=== PATIENT | female | born 1955 | race Caucasian/White ===

== ENCOUNTER 2016-09-26 09:09 | Inpatient (IN) | payer SELFPAY ==
[~2016-09-26] VITALS: Ht 157.5 cm; Wt 60.9 kg
--- NOTE | 2016-09-26 10:36 | DIAGNOSTIC IMAGING REPORT ---
PROCEDURE: XR CHEST 2 VIEW INDICATION: FEVER TECHNIQUE: Two views. COMPARISON: None. FINDINGS: The heart size is at the upper limits of normal. Normal aortic caliber. No central venous congestion. Mild soft tissue prominence in the right infrahilar region. Coarse interstitial markings and thickening of the fissures. Mild hyperinflation of the lungs. Hyperlucent apices. Patchy strandy parenchymal changes in the lower lobes bilaterally. No focal consolidation. Blunting of the costophrenic angles posteriorly. No pneumothorax. Left shoulder arthroplasty with elevation of the prosthetic humeral head and remodelling of the glenoid fossa. No acute fractures visible. IMPRESSION: 1. Coarse interstitial markings and slight hyperinflation suggesting underlying component of COPD/emphysema. 2. Heart size at the upper limits of normal and slight accentuation of the interstitium in the lower lungs could indicate chronic edema or fibrosis. Correlate with BNP. 3. Patchy strandy parenchymal changes of uncertain acuity, atelectasis versus early interstitial edema. 4. A left shoulder arthroplasty.
--- NOTE | 2016-09-26 12:37 | ED NURSING NOTES ---
Clinical Report - Nurses [facility] [address] [place] [address] 09/26/2016 9:09 Patient: IVY ARIAS TRIAGE Triage time 09:10. Acuity: LEVEL 3. Chief Complaint: CHEST PAIN and DISCOMFORT. SEPSIS SCREEN: Sepsis Screen. Negative (no infection suspected/documented). --09:19 Maribell Carlos R.N. 09:10 09/26/16. BP: 150/106. HR: 112. RR: 18. O2 saturation: 99%. Temp: 97.5 F. Pain level now: 12/27. --09:19 Maribell Carlos R.N. Weight: 49.8 kg. Height/Length: 62 inches. BMI: 20.1. --09:11 Maribell Carlos R.N. Medications None. --09:30 Maribell Carlos R.N. Allergies Morphine and Related. --09:30 Maribell Carlos R.N. History Arrived by EMS. Historian: patient. Primary physician (none). This started yesterday. ( Pt c/o CP and point to her midline area when asked where it hurts). The patient has had difficulty breathing. Treatment [employer]SM[employer] APPRENTICE: None. See EMS report. SOCIAL HX: Light tobacco smoker (cigarette)- less than 1/2 a pack per day. Occasional alcohol use. No drug use. No infectious disease exposure. SELF HARM ASSESSMENT: A self harm assessment was performed. The patient answered "no" to the question "Do you have thoughts of harming or killing yourself?". ABUSE ASSESSMENT: Abuse assessment: (pt is homeless). --09:19 Maribell Carlos R.N. PROBLEMS: Upper Extremity Pain. COPD - Chronic Obstructive Pulmonary Disease. Arthritis. --09:31 Maribell Carlos R.N. ADDITIONAL SURGERIES: . Left wrist. Shoulder Surgery. --09:31 Maribell Carlos R.N. Interventions To room. --09:19 Maribell Carlos R.N. PHYSICAL ASSESSMENT To room via stretcher. Patient gowned. GENERAL / NEURO / PSYCH: Alert. Oriented X 4. Appears in pain, anxious and in distress. RESPIRATORY: Moderate respiratory distress. SKIN: Skin is warm and dry. --09:19 Maribell Carlos R.N. NURSING PROGRESS NOTES Patient gowned. Patient identifiers checked. Call light placed in reach. Side rails up. Bed placed in lowest position. Brakes of bed on. Patient ready for evaluation- ED physician notified. --09:20 Maribell Carlos R.N. EKG time: (916). EKG was ordered, performed by a tech and shown to the ED physician. --09:32 Didi Uribe, ER Tech1 09:35 09/26/2016 Site #1 started via IV in the left forearm with an 20g angiocath, with aseptic technique and good blood return; one attempt. Blood drawn: rainbow set. Labeled in the presence of the patient and sent to the lab. Saline lock flushed with 10 mL saline (Beronica GRESHAM). --09:45 Maribell Carlos R.N. 09:45 09/26/2016 Started bag #1 1000 mL IV Fluids IV NS (Saline); bolus of 500 mL over 30 minute(s) then at 100 mL/hr over 5 hour(s) via site #1 via IV pump. Allergies verified and confirmed 5 rights. IV patency established. IV site checked: no pain, redness, or swelling. IV flushed thoroughly pre- and post-medication administration. --09:45 Maribell Carlos R.N. 09:45 09/26/2016 Toradol IVP 30 mg given over 1 minute(s) via site #1. Allergies verified and confirmed 5 rights. IV patency established. IV site checked: no pain, redness, or swelling. IV flushed thoroughly pre- and post-medication administration. IVP given by RN. --09:45 Maribell Carlos R.N. 09:46 09/26/2016 Ativan (LORazepam) IVP 1 mg given over 1 minute(s) via site #1. Allergies verified, confirmed 5 rights and sedative warning given to the patient. IV patency established. IV site checked: no pain, redness, or swelling. IV flushed thoroughly pre- and post-medication administration. IVP given by RN. --09:46 Maribell Carlos R.N. Reassessment after medication administered. She reports no complaints, she is calm and sleeping and she has had no adverse reaction. Overall patient status is improved- she states feels better. RESPIRATORY: No respiratory distress. SKIN: Skin color within normal limits. --09:49 Maribell Carlos R.N. 09:50 09/26/16. BP: 153/97. HR: 100. RR: 16. O2 saturation: 95%. --09:53 Maribell Carlos R.N. Patient transported to radiology by stretcher with tech. --09:58 Maribell Carlos R.N. 10:37 09/26/16. BP: 162/88. HR: 109. RR: 18. O2 saturation: 99%. --10:38 Maribell Carlos R.N. 10:15 late entry -. Patient returned from radiology by stretcher with tech. --10:39 Maribell Carlos R.N. ( Pt is very restless, unable to tolerate BP cuff and taking it off, O2 sat unable to read due to pt moving around constantly, several blankets given which pt gets tangled in. She is groaning and saying she is uncomfortable but is unable to express what hurts.). GENERAL / NEURO / PSYCH: The patient reports anxiety. --11:06 Maribell Carlos R.N. ( Pt in CT, received call that she won't hold still, gave Ativan as ordered.). --12:08 Maribell Carlos R.N. Patient transported to CT by stretcher with tech. ([id number]). --12:08 Maribell Carlos R.N. 13:15 US tech at bedside to attempt echocardiagram. --13:15 Chantal Lovell R.N. ( Echo done to the best of the ability of the tech due to restlessness of the patient). --13:48 Maribell Carlos R.N. 13:48 09/26/16. BP: 187/116. HR: 108. O2 saturation: 99%. Additional comments: very difficult to get vital signs due to pt removing bp cuff and o2 sat. --13:50 Maribell Carlos R.N. ( Pt won't keep product manufacturing professional, BP cuff, or Sat monitor on. She is within site of the nurses station to be visually monitored). --14:02 Maribell Carlos R.N. Reassessment after medication administered. She is calm and sleeping. --14:18 Maribell Carlos R.N. The patient is sleeping. ( Respirations 16). SKIN: Skin is warm and dry. Skin color within normal limits. --14:45 Maribell Carlos R.N. late entry -16:00. ( Patient sleeping soundly. 98 percent O2 on room air.). --12:03 Maki Decker R.N. late entry -16:45. ( Assisted patient to commode patient very sleepy and falling asleep while on the toilet. O2 sat 98 percent room air. Patient refused other monitoring.). --12:05 Maki Decker R.N. late entry -17:10. ( assisted patient to commode very sleepy and disoriented.). --12:05 Maki Decker R.N. late entry -18:10. ( here to see patient requests labs before he will accept admit.). --12:06 Maki Decker R.N. late entry -19:00. ( Report given to Aruna GRESHAM). --12:07 Maki Decker R.N. 10:45 09/26/2016 IV Fluids IV NS Discontinued: bag #1 infused. Total amount infused: 1000 mL. IV patency established. IV site checked: no pain, redness, or swelling. IV flushed thoroughly. --12:07 Maki Decker R.N. 11:31 09/26/2016 Ativan (LORazepam) IVP 1 mg given over 1 minute(s) via site #1. Allergies verified, confirmed 5 rights and sedative warning given to the patient. IV patency established. IV site checked: no pain, redness, or swelling. IV flushed thoroughly pre- and post-medication administration. IVP given by PA. --11:41 Maribell Carlos R.N. 12:07 09/26/2016 Ativan (LORazepam) IVP 2 mg given over 2 minute(s) via site #1. Allergies verified, confirmed 5 rights and sedative warning given. IV patency established. IV site checked: no pain, redness, or swelling. IV flushed thoroughly pre- and post-medication administration. IVP given by RN. --12:07 Maribell Carlos R.N. 12:58 09/26/16. Overall patient status is the same- she states feels the same (pt out to desk stating "it's time for me to go", walked her back into her room, she had pulled out her IV). --12:58 Chantal Lovell R.N. 13:01 09/26/2016 Site #1 removed (pt pulled out the IV catheter, and it was on the bed, catheter is intact). --13:01 Chantal Lovell R.N. 13:15 09/26/2016 Site #2 started via IV in the left forearm with an 20g angiocath, with aseptic technique and good blood return; one attempt. Saline lock flushed with 10 mL saline. --13:15 Chantal Lovell R.N. 13:31 09/26/2016 Lasix IVP 80 mg given over 1 minute(s) via site #2. Allergies verified and confirmed 5 rights. IV patency established. IV site checked: no pain, redness, or swelling. IV flushed thoroughly pre- and post-medication administration. IVP given by RN. --13:41 Maribell Carlos R.N. 13:42 09/26/2016 Dilaudid (HYDROmorphone HCl PF) IVP 1 mg given over 1 minute(s) via site #2. Allergies verified, confirmed 5 rights and sedative warning given to the patient. IV patency established. IV site checked: no pain, redness, or swelling. IV flushed thoroughly pre- and post-medication administration. IVP given by RN. --13:42 Maribell Carlos R.N. Intake & Output Urine: up to bedside commode, with return of 500 mL yellow-colored urine; odor is foul-smelling. --15:31 Maribell Carlos R.N. DISPOSITION / DISCHARGE 20:25 09/26/16. BP: 152/102 (regular adult cuff) taken on the left arm. HR: 102. RR: 14. O2 saturation: 98% on nasal cannula at 1 liters/minute. Temp: 98 F (oral). Pain level now: 0. --20:34 Aruna Dunaway R.N. 20:25 09/26/2016 Site #[address] upon transfer; patent, no pain and no signs of infection or infiltration. --20:34 Aruna Dunaway R.N. 20:33 09/26/16. Departure time: 20:Sep 26 2016. Admitted to the Critical Care Unit. Report was given. (By Ysabel RN to MP Colón). Patient's personal items include: shirt and purse. --20:34 Aruna Dunaway R.N. Locked/Released at 09/27/2016 12:07 by Maki Decker R.N.
--- NOTE | 2016-09-26 12:37 | ED CLINICAL REPORT ---
Clinical Report - Physicians/Mid Levels [facility] [address] [place] [address] 09/26/2016 9:09 Patient: IVY ARIAS Time Seen: 09:22. Arrived- By ambulance. Historian- patient and EMS personnel. HISTORY OF PRESENT ILLNESS Chief Complaint: CHEST PAIN. At its maximum, severity described as moderate. When seen in the E.D., severity described as moderate. Modifying factors- worsened by cough and deep breaths. Not relieved by anything. This started about 3 days ago and is still present. The patient cannot recall the circumstances at the onset. It is described as tightness, sharp and "pain" and it is described as located in the central chest area and radiating to the upper back. The patient has had nausea. She has had vomiting (today). She has had difficulty breathing (hurts to take a deep breath). No diaphoresis. (patient states she has had a cough and a fever for about the last 3 days. She has not measured the fever, but states she has felt warm. Patient states that she has been told that she has early COPD, but otherwise has no heart or lung problems. Patient denies having had chest pain ever before.). Similar symptoms previously: None. Recent medical care: Not recently seen/assessed. REVIEW OF SYSTEMS The patient has had a subjective fever, a cough and abdominal pain. The pain is described as located in the lower abdomen. No chills, calf pain, fainting episodes, headache or sore throat. No blurred vision, black stools, difficulty with urination, skin rash or enlarged lymph nodes. No bloody stools. The patient has had pedal edema (- gone). All systems otherwise negative, except as recorded above. PAST HISTORY Problems: LNMP - Last Normal Menstrual Period. COPD - Chronic Obstructive Pulmonary Disease. Arthritis. Additional Surgeries: . Left wrist. Shoulder Surgery. Medications: None. Allergies: Morphine and Related. SOCIAL HISTORY Smoker- current status unknown. Alcohol use. No drug use. ADDITIONAL NOTES The nursing notes have been reviewed. PHYSICAL EXAM Vital Signs: 09/26/2016 09:10 BP: 150/106. HR: 112. RR: 18. O2 saturation: 99%. Temp: 97.5 F. Pain level now: 12/27. Have been reviewed. Appearance: Alert. Patient in mild distress. Distress appears due to pain and anxiety. (Patient is grossly oriented, and answers questions appropriately.). Eyes: Pupils equal, round and reactive to light. Eyes normal inspection. ENT: Nose normal. Neck: Normal inspection. CVS: Tachycardia. Heart sounds normal. Pulses normal. Respiratory: No respiratory distress. Breath sounds normal. (Chest is tender, but it is difficult to ascertain whether this is the same pain, patient states.). Abdomen: Soft and nontender. Back: Normal external inspection. Skin: Skin warm and dry. Normal skin color. No rash. Normal skin turgor. Extremities: Extremities exhibit normal ROM. No lower extremity edema. Neuro: Oriented X 3. No motor deficit. No sensory deficit. LABS, X-RAYS, AND EKG EKG: EKG time: (916). No acute ischemia. Rate: 109. Regular narrow-complex tachycardia. Sinus tachycardia. Occasional ectopic beats. Premature ventricular contractions. Normal P waves. Normal JORGE. Decreased QRS voltage. Normal axis. Normal ST and T waves, QT and QTc. Prior EKG unavailable. The study has been interpreted contemporaneously by me. The study has been independently viewed by me. The EKG appears to be a good tracing. I agree with and confirm the computer reading of the EKG. Rhythm Strip #1: Time: (927). Rate= 107. Sinus tachycardia. Regular rhythm. Narrow QRS complexes. No ectopy. Conduction normal. Normal ST segments and T waves. The study was interpreted by me. Chest X-ray: Vascular congestion present. Cardiomegaly. Mediastinum normal. Great vessels normal. Soft tissues normal. No infiltrate. No fracture. No bony lesion present. (Findings also consistent with COPD.). Views: PA and lateral. Technique: good. The X-rays were independently viewed by me, interpreted by the radiologist and contemporaneously by me and discussed with the radiologist. Prior films were not available for comparison. Chest CT: Great vessels normal. Mediastinum normal. No fractures noted. No pulmonary embolism. (Cardiomegaly more pronounced than on the chest x-ray. Patient's also found to have findings consistent with CHF. She is noted to have anasarca and thickening of the gallbladder wall without pericholecystic fluid, and no visible gallstones.). Chest CT performed with contrast and without contrast. The study was independently viewed by me, interpreted by the radiologist and contemporaneously by me and discussed with the radiologist. Prior studies were not available for comparison. Abdominal Sonogram: Gallbladder wall thickening is present. Normal liver. Pancreas normal. No free fluid. No gallstones, dilated common duct or common duct stones. Study included the gallbladder and upper abdomen. Prior studies were not available for comparison. The study was interpreted by the radiologist and discussed with the radiologist. Laboratory Tests: UA-Culture if indicated: (DOMINGO: 09/26/2016 10:30) ( MsgRcvd 09/26/2016 18:53) Final results Test Result Flag Units (Reference) URINE COLOR YELLOW URINE APPEARANCE CLOUDY URINE GLUCOSE NEGATIVE (NEGATIVE) URINE BILIRUBIN NEGATIVE (NEGATIVE) URINE KETONE NEGATIVE (NEGATIVE) URINE SPECIFIC GRAVITY >= 1.030 (1.010-1.030) URINE PH 6.0 (5.0-8.0) URINE PROTEIN 2+ (NEGATIVE) URINE UROBILINOGEN 0.2 EU/dL (0.2-1.0) URINE NITRITE NEGATIVE (NEGATIVE) URINE BLOOD NEGATIVE (NEGATIVE) URINE LEUK ESTERASE NEGATIVE (NEGATIVE) URINE RBC NONE SEEN rbc/hpf (0-1) URINE WBC 0-1 wbc/hpf (0-1) URINE EPITHELIAL CELLS 0-1 EPI/hpf (0-5) URINE BACTERIA MANY (4+) (NONE SEEN) URINE COMMENT CULTURE INDICATED URINE CULTURES ARE SET-UP BASED ON THE FOLLOWING CRITERIA:POSITIVE NITRITEPOSITIVE LEUKOCYTE ESTERASEGREATER THAN 10 WHITE BLOOD CELLSMODERATE (2+) OR GREATER BACTERIA CBC w Diff: (DOMINGO: 09/26/2016 09:20) ( MsgRcvd 09/26/2016 09:46) Final results Test Result Flag Units (Reference) WHITE BLOOD COUNT 13.2 H K/uL (4.5-11.5) RED BLOOD COUNT 3.83 L M/uL (4.00-5.20) HEMOGLOBIN 11.2 L gm/dL (12.0-16.0) HEMATOCRIT 33.9 L % (36.0-46.0) MEAN CELL VOLUME 89 fL (80-100) MEAN CORPUSCULAR HGB 29 pg (26-34) MEAN CORPUSCULAR HGB CONC 33 g/dL (31-37) RED CELL DISTRIBUTION WIDTH 16.0 H % (11.6-14.8) PLATELET COUNT 410 H K/uL (150-400) NEUTROPHIL % 80.5 H % (50-75) LYMPH % 11.9 L % (25-40) MONO % 6.3 % (3-14) EOSINOPHIL % 0.4 % (0-4) BASOPHIL % 0.9 % (0-2) [id number]: (DOMINGO: 09/26/2016 09:20) ( [facility] 09/26/2016 10:00) Final results Test Result Flag Units (Reference) D-DIMER QUANTITATIVE 1.85 H ug/mLFEU (0.27-0.52) The primary value of this quantitative assay relates toits negative predictive value (i.e. exclusion) of pulmonaryembolism/deep vein thrombosis/DIC.Elevated levels of d-dimer may also occur with:, age, cancer, inflammation, liver disease,post-op, infection, hematoma, coronary disease, peripheralarteriopathy, bleeding disorders and thrombolytic treatment.Results should be correlated with other clinical andradiological data.Testing Methodology: Latex Immunoassay Amylase: (DOMINGO: 09/26/2016 17:35) ( [facility] 09/26/2016 19:03) Final results Test Result Flag Units (Reference) AMYLASE 35 U/L (25-115) THYROID STIMULATING HORMONE 1.348 uIU/mL (0.30-3.74) Urine Drug Screen: (DOMINGO: 09/26/2016 10:30) ( [facility] 09/26/2016 19:03) Final results Test Result Flag Units (Reference) AMPHETAMINE/METHAMPHETAMINE POSITIVE H (NEGATIVE) BARBITURATE NEGATIVE (NEGATIVE) BENZODIAZEPINE NEGATIVE (NEGATIVE) CANNABINOID NEGATIVE (NEGATIVE) COCAINE NEGATIVE (NEGATIVE) ECSTASY NEGATIVE (NEGATIVE) METHADONE NEGATIVE (NEGATIVE) OPIATE POSITIVE H (NEGATIVE) The urine drug screen is a qualitative screening test fordrug overdose and abuse. All screen results should beconsidered as presumptive.Drugs screened for are as follows:BenzodiazepinesCocaineAmphetamines/MetamphetaminesTHC (Tetrahydrocannabinol)OpiatesBarbituratesEcstasyMethadonePositive results are unconfirmed. For confirmation, notifythe lab for the specimen to be sent to the reference lab.All confirmations must be performed by a differentmethodology.The ingestion of natural herbal and plant productscontaining Ephedra/Ephedra metabolites can produce in urineone or more substances capable of cross reacting withamphetamine/methamphetamine immunoassays. These testsprovide a preliminary result only. A more specificalternative chemical method must be used to obtain aconfirmed analytical result. Lactate, Serum: (DOMINGO: 09/26/2016 17:35) ( [facility] 09/26/2016 18:16) Final results Test Result Flag Units (Reference) LACTIC ACID 1.4 mmol/L (0.4-2.0) [id number]: (DOMINGO: 09/26/2016 09:20) ( [facility] 09/26/[place] 18:09) Final results Test Result Flag Units (Reference) PROCALCITONIN <0.5 ng/mL (0-0.5) PCT Concentration: Interpretation : Risk/option for action PCT <=0.5 ng/mL : Systemic : Low risk forinfection(sepsis): progression to severeis not likely. : systemic infection.Local bacterial : CAUTION-PCT levelsinfection is : below 0.5 ng/mL do notpossible. : exclude an infection,because localizedinfections (withoutsystemic signs) may beassociated with suchlow levels. If PCT ismeasured very earlyafter a bacterialchallenge (usually <6hours), these valuesmay still be low. Inthis case PCT shouldbe re-assessed 6-24hours later. PCT >0.5 and : Systemic infection: Moderate risk for<= 2 ng/mL : (sepsis) is : progression to severepossible, but : systemic infection.other conditions : The patient should beare known to : closely monitoredelevate PCT. : both clinically andby re-assessing PCTwithin 6-24 hours. PCT > 2 ng/mL : Systemic infection: High risk for(sepsis) is likely: progression to severeunless other : systemic infection.causes are known. : PCT >= 10 ng/mL : Important systemic: High likelihood ofinflammatory : severe sepsis orresponse, almost : septic shock.exclusively due to:severe bacterial :sepsis or septic :shock. : Liver Function Panel: (DOMINGO: 09/26/2016 09:20) ( MsgRcvd 09/26/2016 18:04) Final results Test Result Flag Units (Reference) TOTAL PROTEIN 6.5 g/dL (6.4-8.2) ALBUMIN 3.4 g/dL (3.3-5.0) BILIRUBIN, TOTAL 1.4 H mg/dL (0.0-1.0) BILIRUBIN, DIRECT 0.3 mg/dL (0-0.3) ALKALINE PHOSPHATASE 157 H U/L (46-116) AST (SGOT) 109 H U/L (15-37) ALT (SGPT) 192 H U/L (12-78) Troponin-I: (DOMINGO: 09/26/2016 09:20) ( [facility] 09/26/2016 13:41) Final results Test Result Flag Units (Reference) TROPONIN I 0.05 ng/mL (0.00-1.5) TROPONIN REFERENCE RANGE:<0.1 NEGATIVE0.1-1.5 INDETERMINANT>1.5 POSITIVE CHEM 13 PANEL: (DOMINGO: 09/26/2016 09:20) ( [facility] 09/26/2016 10:05) Final results Test Result Flag Units (Reference) GLUCOSE 119 H mg/dL (70-110) BUN 22 H mg/dL (7-18) CREATININE 1.3 mg/dL (0.6-1.3) Estimated GFR 44.56 mL/min Estimated GFR- 54.01 mL/min Note: Persistent reduction over 3 months in eGFR<60 mL/min/1.73 m2 defines CKD. Patients with eGFR values>=60 mL/min/1.73 m2 may also have CKD if evidence ofpersistent proteinuria. Additional information may be foundat www.kidney.org. SODIUM 140 mmol/L (136-145) POTASSIUM 4.3 mmol/L (3.5-5.1) CHLORIDE 104 mmol/L (98-107) CARBON DIOXIDE 26 mmol/L (21-32) CALCIUM 8.8 mg/dL (8.5-10.1) TOTAL PROTEIN 6.4 g/dL (6.4-8.2) ALBUMIN 3.3 g/dL (3.3-5.0) BILIRUBIN, TOTAL 1.5 H mg/dL (0.0-1.0) ALKALINE PHOSPHATASE 155 H U/L (46-116) AST (SGOT) 105 H U/L (15-37) ALT (SGPT) 195 H U/L (12-78) MAGNESIUM 2.0 mg/dL (1.8-2.4) CPK 219 U/L (24-260) TROPONIN I 0.06 ng/mL (0.00-1.5) TROPONIN REFERENCE RANGE:<0.1 NEGATIVE0.1-1.5 INDETERMINANT>1.5 POSITIVE . Pulse Oximetry: 09/26/2016 09:10 O2 saturation: 99%. (FIO2 - room air). Interpretation: normal. PROGRESS AND PROCEDURES Course of Care: Patient was treated symptomatically with Toradol, Dilaudid, multiple doses of Ativan, and IV fluids. She was worked up extensively for her chest pain, cough and shortness of breath. Patient was found to have a mildly elevated white blood cell count and moderately elevated LFTs. BNP was not available secondary to malfunction of the lab machine toanalyze for BNP. Chest x-ray showed mild cardiomegaly and findings consistent with and mild CHF, as well as COPD. A CT angiogram of the chest was performed, secondary to the patient's elevated d-dimer and her presentation. This showed no pulmonary embolism but did show more pronounced findings of CHF and cardiomegaly than were visible on the chest x-ray. This showed anasarca, and radiologist did feel that the findings on the abdominal sonogram, which had been done because of the patient's elevated LFTs and chest discomfort, were not necessarily consistent with actual cholecystitis, given the degree of fluid retention from the patient CHF. I did speak with Dr. Vazquez and Dr. Peguero and ultimately, it was decided that patient would be admitted to the hospitalist service, with consultation by general surgery. Plan is for a HIDA scan tomorrow to further evaluate the potential for cholecystitis. Patient did have a normal lactate and pro calcitonin levels. She was given IV Lasix for diuresis. Discussed case with hospitalist, (Marielena). Reviewed test results and need for additional work-up. Agreed upon treatment plan and decision to admit. Health care provider will see patient in ED. Discussed case with health care provider (Taylor, surgery). Reviewed test results and need for additional work-up. Agreed upon treatment plan. Health care provider will see patient in hospital. Patient counseled in person regarding the patient's serious condition, test results, diagnosis and need for additional testing and admission. Concerns were addressed. Old medical records reviewed. Disposition: Admitted to the Critical Care Unit. Condition: serious. CLINICAL IMPRESSION Acute moderate congestive heart failure. Possible acute cholecystitis. No cholelithiasis. (Electronically signed by Jenifer Ashley MD 09/26/2016 22:34)
--- NOTE | 2016-09-26 12:38 | ED ORDER SUMMARY ---
..... Patient: IVY ARIAS OrderSheet [facility] VisitID: [id number] [address] [place] [address] 61y, F Registration Date/Time: 09/26/2016 ORDER SHEET Weight: 49.8 kg Allergies: Morphine and Related GENERAL ORDERS: EKG - ER Stat (09:18 09/26/2016 PWeiler ER Tech1 per protocol) (9:18 PWeiler ER Tech1) Chest 2V Urgent (09:32 09/26/2016 Rodrigo SEPULVEDA) (Ack 9:42 PWeiler ER Tech1) (10:08 PWeiler ER Tech1) Otolaryngology Teacher (Continuous) (:09/26/2016 Rodrigo SEPULVEDA) (9:46 JBest R.N.) Cardiac Panel Stat (:09/26/2016 Rodrigo SEPULVEDA) (Ack 9:42 PWeiler ER Tech1) (11:11 PWeiler ER Tech1) BNP Urgent (:09/26/2016 Rodrigo SEPULEVDA) (Ack 9:42 PWeiler ER Tech1) (11:11 PWeiler ER Tech1) D-Dimer Urgent (09:09/26/2016 Rodrigo SEPULVEDA) (Ack 9:42 PWeiler ER Tech1) (11:11 PWeiler ER Tech1) Pulse oximeter (:09/26/2016 Rodrigo SEPULVEDA) (9:46 JBest R.N.) CTA Thorax w Cont (No) (N/A) Urgent (11:25 09/26/2016 Rodrigo SEPULVEDA) (Ack 11:29 PWeiler ER Tech1) (12:17 PWeiler ER Tech1) US Abdomen Limited (Yes) Urgent (11:25 09/26/2016 Rodrigo SEPULVEDA) (Ack 11:29 PWeiler ER Tech1) (12:30 PWeiler ER Tech1) Troponin-I Urgent (12:53 09/26/2016 Rodrigo SEPULVEDA) (Ack 12:57 PWeiler ER Tech1) (12:58 PWeiler ER Tech1) Echocardiogram Urgent (12:53 09/26/2016 Rodrigo SEPULVEDA) (Ack 12:59 PWeiler ER Tech1) (Cancelled: Wrong Order14:08 PWeiler ER Tech1) Echocardiogram (Limited) Urgent (14:08 09/26/2016 PWeiler ER Tech1 verbal order read back to Rodrigo SEPULVEDA) (14:24 PWeiler ER Tech1) Lactate, Serum Urgent (16:33 09/26/2016 Rodrigo SEPULVEDA) (Ack 16:37 PWeiler ER Tech1) (17:43 PWeiler ER Tech1) PCT (Procalcitonin) Urgent (16:33 09/26/2016 Rodrigo SEPULVEDA) (Ack 16:37 PWeiler ER Tech1) (17:43 PWeiler ER Tech1) Liver Function Panel Urgent (16:33 09/26/2016 Rodrigo SEPULVEDA) (Ack 16:37 PWeiler ER Tech1) (17:43 PWeiler ER Tech1) MEDICATION ORDERS: IV FLUIDS: IV NS : initial bolus 500 mL (1000 mL/hr), then 100 mL/hr (NOW) (09:33 09/26/2016 Rodrigo SEPULVEDA) (9:45 JBest R.N.) Toradol IV 30 mg (NOW) (09:33 09/26/2016 Rodrigo SEPULVEDA) (9:45 JBest R.N.) Ativan IV 1 mg (HIGH ALERT MEDICATION, NOW) (09:33 09/26/2016 Rodrigo SEPULVEDA) (9:46 JBest R.N.) Ativan IV 1 mg (HIGH ALERT MEDICATION, NOW) (11:23 09/26/2016 Rodrigo SEPULVEDA) (11:41 JBest R.N.) Ativan IV 2 mg (HIGH ALERT MEDICATION, NOW) (11:52 09/26/2016 Rodrigo SEPULVEDA) (12:07 JBest R.N.) Dilaudid IV 1 mg (HIGH ALERT MEDICATION, NOW) (12:52 09/26/2016 Rodrigo SEPULVEDA) (13:42 JBest R.N.) Lasix IV 80 mg (NOW) (12:57 09/26/2016 Rodrigo SEPULVEDA) (13:41 JBest R.N.) ORDER SHEET NOTES: [Electronically signed by Jenifer Ashley MD (22:34 09/26/2016)] [Electronically signed by Maki DeckerNDarin (12:07 09/27/2016)] [Electronically locked/signed by Maki Decker R.N. (12:07 09/27/2016)]
--- NOTE | 2016-09-26 12:38 | ED ORDER SUMMARY ---
..... Patient: IVY ARIAS OrderSheet [facility] VisitID: [id number] [address] [place] [address] 61y, F Registration Date/Time: 09/26/2016 ORDER SHEET Weight: 49.8 kg Allergies: Morphine and Related GENERAL ORDERS: EKG - ER Stat (09:18 09/26/2016 PWeiler ER Tech1 per protocol) (9:18 PWeiler ER Tech1) Chest 2V Urgent (09:32 09/26/2016 Rodrigo SEPULVEDA) (Ack 9:42 PWeiler ER Tech1) (10:08 PWeiler ER Tech1) Wire Winding Machine Tender (Continuous) (:09/26/2016 Rodrigo SEPULVEDA) (9:46 JBest R.N.) Cardiac Panel Stat (:09/26/2016 Rodrigo SEPULVEDA) (Ack 9:42 PWeiler ER Tech1) (11:11 PWeiler ER Tech1) BNP Urgent (:09/26/2016 Rodrigo SEPULVEDA) (Ack 9:42 PWeiler ER Tech1) (11:11 PWeiler ER Tech1) D-Dimer Urgent (09:09/26/2016 Rodrigo SEPULVEDA) (Ack 9:42 PWeiler ER Tech1) (11:11 PWeiler ER Tech1) Pulse oximeter (:09/26/2016 Rodrigo SEPULVEDA) (9:46 JBest R.N.) CTA Thorax w Cont (No) (N/A) Urgent (11:25 09/26/2016 Rodrigo SEPULVEDA) (Ack 11:29 PWeiler ER Tech1) (12:17 PWeiler ER Tech1) US Abdomen Limited (Yes) Urgent (11:25 09/26/2016 Rodrigo SEPULVEDA) (Ack 11:29 PWeiler ER Tech1) (12:30 PWeiler ER Tech1) Troponin-I Urgent (12:53 09/26/2016 Rodrigo SEPULVEDA) (Ack 12:57 PWeiler ER Tech1) (12:58 PWeiler ER Tech1) Echocardiogram Urgent (12:53 09/26/2016 Rodrigo SEPULVEDA) (Ack 12:59 PWeiler ER Tech1) (Cancelled: Wrong Order14:08 PWeiler ER Tech1) Echocardiogram (Limited) Urgent (14:08 09/26/2016 PWeiler ER Tech1 verbal order read back to Rodrigo SEPULVEDA) (14:24 PWeiler ER Tech1) Lactate, Serum Urgent (16:33 09/26/2016 Rodrigo SEPULVEDA) (Ack 16:37 PWeiler ER Tech1) (17:43 PWeiler ER Tech1) PCT (Procalcitonin) Urgent (16:33 09/26/2016 Rodrigo SEPULVEDA) (Ack 16:37 PWeiler ER Tech1) (17:43 PWeiler ER Tech1) Liver Function Panel Urgent (16:33 09/26/2016 Rodrigo SEPULVEDA) (Ack 16:37 PWeiler ER Tech1) (17:43 PWeiler ER Tech1) MEDICATION ORDERS: IV FLUIDS: IV NS : initial bolus 500 mL (1000 mL/hr), then 100 mL/hr (NOW) (09:33 09/26/2016 Rodrigo SEPULVEDA) (9:45 JBest R.N.) Toradol IV 30 mg (NOW) (09:33 09/26/2016 Rodrigo SEPULVEDA) (9:45 JBest R.N.) Ativan IV 1 mg (HIGH ALERT MEDICATION, NOW) (09:33 09/26/2016 Rodrigo SEPULVEDA) (9:46 JBest R.N.) Ativan IV 1 mg (HIGH ALERT MEDICATION, NOW) (11:23 09/26/2016 Rodrigo SEPULVEDA) (11:41 JBest R.N.) Ativan IV 2 mg (HIGH ALERT MEDICATION, NOW) (11:52 09/26/2016 Rodrigo SEPULVEDA) (12:07 JBest R.N.) Dilaudid IV 1 mg (HIGH ALERT MEDICATION, NOW) (12:52 09/26/2016 Rodrigo SEPULVEDA) (13:42 JBest R.N.) Lasix IV 80 mg (NOW) (12:57 09/26/2016 Rodrigo SEPULVEDA) (13:41 JBest R.N.) ORDER SHEET NOTES: [Electronically signed by Jenifer Ashley MD (22:34 09/26/2016)] [Electronically signed by Maki DeckerNDarin (12:07 09/27/2016)] [Electronically locked/signed by Maki Decker R.N. (12:07 09/27/2016)]
--- NOTE | 2016-09-26 12:54 | DIAGNOSTIC IMAGING REPORT ---
PROCEDURE: CTA THORAX WITH CONTRAST INDICATION: SHORTNESS OF BREATH TECHNIQUE: 104 ml of Isovue 370 was injected intravenously and axial images were obtained of the chest with 3D sagittal and coronal MIP reconstructions. COMPARISON: None. FINDINGS: Suboptimal exam secondary to excessive patient motion. No central or lobe are pulmonary embolus. Subsegmental emboli cannot be entirely excluded but not convincingly visualized. Main pulmonary outflow tract is minimally enlarged and 3.3 cm. The heart is diffusely enlarged. No intraventricular septal bowing. Mild coronary calcification. No pericardial effusion. There is hepatic reflux of contrast. Mild adenopathy in the paratracheal, pericarinal, AP window, and right infrahilar areas. Small right, and trace left pleural effusions. Mild ground-glass opacity anterior right middle lobe and lingula. Thickening of the interstitium diffusely at the lung bases. Osseous structures suboptimally evaluated secondary to motion. There is subcutaneous edema throughout the body wall circumferentially. Trace amount of perihepatic ascites seen in the upper abdomen. IMPRESSION: 1. Suboptimal exam secondary to patient motion. 2. Cardiomegaly with findings suggestive of heart failure and interstitial edema. 3. Third spacing of fluid indicated by pleural effusions, subcutaneous edema/anasarca and trace upper abdominal ascites. 4. Mediastinal and right infrahilar adenopathy. An underlying right middle lobe infection is not excluded but felt less likely. 5. Discussed with Dr. Ashley in the emergency room.
--- NOTE | 2016-09-26 13:00 | DIAGNOSTIC IMAGING REPORT ---
PROCEDURE: US ABDOMEN ULTRASOUND-LIMITED INDICATION: ABNORMAL LFT TECHNIQUE: Prado scale and color Doppler sonographic images were obtained of the right upper quadrant. COMPARISON: None. FINDINGS: Suboptimal exam. The patient is uncooperative. The gallbladder wall is diffusely thickened measuring up to 11 mm of the gallbladder is nondilated. No stones or sludge were visible. No pericholecystic fluid or definite Butler's sign. The common duct is normal caliber 4 mm. The liver is normal in size. Portal triads are mildly hyperechoic. No liver mass or biliary dilatation. The pancreas was not visible. The right kidney measures 10.4 cm in length and has a normal echotexture. No free fluid in Morison's pouch. IMPRESSION: 1. Thickened gallbladder wall, however this is nonspecific and more likely related to heart failure, third spacing of fluid, hypoproteinemia, anasarca etc. Acalculus cholecystitis is felt less likely but not entirely excluded. 2. Echogenic portal triads possibly secondary to periportal edema. 3. Findings called to the emergency room.
--- NOTE | 2016-09-26 17:08 | DIAGNOSTIC IMAGING REPORT ---
PROCEDURE: US ECHOCARDIOGRAM LIMITED INDICATION: CHF TECHNIQUE: Limited study since the patient was not made to lie in supine position. COMPARISON: No prior study. Rhythm: Sinus tachycardia FINDINGS: The left ventricular ejection fraction is severely reduced with an estimated ejection fraction around 20%. There is severe global with the lateral wall and apical wall most preserved. The LV chamber size is grossly normal in size. The left ventricular posterior wall and interventricular septum are both measured at 1.2 cm consistent with mild concentric left ventricular hypertrophy. There is evidence for is severe tricuspid regurgitation. There is mild to moderate mitral regurgitation. The aortic valve is trileaflet and opens well. The interventricular septum is intact. The IVC is enlarged and does not collapse more than 50% during respiration consistent with a high right atrial pressure of 15 mmHg. The right ventricular systolic pressure is estimated at 76 mmHg. The right ventricular systolic function is lower limits of normal. The right ventricular chamber size is borderline enlarged. IMPRESSION: 1. Severely reduced LV systolic function with preserved apical wall motion abnormality with mild to moderately hypokinesis of the lateral wall and more severe hypokinesis along the rest of the LV segments. LV ejection fraction is estimated around 20%. 2. Preserved RV systolic function with borderline large RV chamber size. Severely increased right ventricular systolic pressure estimated at 76 mmHg. 3. Mild to moderate mitral regurgitation and severe tricuspid regurgitation. 4. Mild concentric left ventricular hypertrophy.
--- NOTE | 2016-09-26 18:51 | Progress Note ---
Subjective General Admission History and Physical Examination Patient Name: Maximiliano Elena Admission Date: September 26, 2016 Primary Care Provider: None Attending Physician: Jonathan Perez M.D. Admitting Physician: Miquel Peguero M.D. Code Status: FULL CODE Room: 302 Admission Status: Inpatient, CCU SUBJECTIVE Historian: Previous records, patient Reliability: Poor Chief Complaint: Chest pain History of Present Illness: The patient is a 61-year-old white female with unknown past medical history who presented to [facility] emergency department on the day of admission secondary to complaints of pleuritic chest pain. The history of present was began 3 days prior to admission when the patient developed intermittent chest pain. This was stated to be exacerbated by coughing, chest wall movement. It was associated with nausea and vomiting. Secondary to the above, the patient presented to [facility] emergency department for further evaluation treatment. [facility] ER evaluation was consistent with possible acute cholecystitis, CHF. Secondary to the above, general surgery (Francis Vazquez M.D.) requested the patient be admitted by the hospitalist service with surgical consultation for further evaluation and treatment. The patient is very lethargic status post administration of anti-anxiety agents. She is unable to give any history at this time. PAST MEDICAL HISTORY Illnesses: 1. COPD 2. Degenerative joint disease 3. Illicit drug use-methamphetamine Allergies: 1. Morphine Medications: 1. None Surgery: 1. 2. Left wrist surgery 3. Shoulder surgery Injuries: 1. No significant Hospitalizations: 1. For previously mentioned surgery and medical problems FAMILY HISTORY 1. Unobtainable SOCIAL HISTORY 1. Marital Status: 2. Christianity: Oriental Orthodox 3. Education: Unknown 4. Employment History: Unknown 5. Occupational health exposures: Unknown HABITS 1. Tobacco: Tobacco use, ongoing, duration and amount unknown 2. Drugs: Methamphetamine 3. Alcohol: Unknown 4. Caffeine: Unknown HEALTH SUPERVISION Item/Test 1. Unobtainable IMMUNIZATIONS: 1. Pneumococcal: Unknown 2. Influenza: Unknown 3. Tetanus: Unknown ADVANCED DIRECTIVES: 1. CODE STATUS: Full code REVIEW OF SYSTEMS Remarkable for those things stated in the history of present illness and past medical history. Seventeen point review of system completed with the following notable findings: Unobtainable Physical Exam Vital Signs / I&Os Blood pressure: 150/106 mmHg Heart rate: 112/minute Respiratory rate: 18/minute Temperature: 97.5. Height orally Pulse oximetry: 99% room air General Appearance Cooperative, lethargic, confused HEENT Atraumatic, PERRLA, EOMI, Moist mucous membranes Lungs Scattered rhonchi, no wheezes noted. Neck Supple Cardiovascular Regular rate and rhythm, Normal S1 and S2, grade 2/6 systolic murmur present. Mild tachycardia. Abdomen Normal bowel sounds, Soft, question minimal right upper quadrant/ epigastric tenderness Extremities No cyanosis, No clubbing Neurological Cranial nerves intact, Strength 5/5 x4 ext's, No lateralizing signs , confused, lethargic Psych/Mental Status Confused, Lethargic LAB Results Laboratory Tests 09/26 09/26 09/26 09/26 09/26 1735 1735 1030 0920 0920 Chemistry Lactic Acid (0.4 - 2.0 mmol/L) 1.4 Troponin (0.00 - 1.5 ng/mL) 0.05 Amylase Pending Procalcitonin (0 - 0.5 ng/mL) <0.5 TSH 3rd Generation Pending Toxicology Urine Opiates Screen Pending Urine Methadone Screen Pending Ur Barbiturates Screen Pending U Amphetamin/Meth Scrn Pending MDMA (Ecstasy) Screen Pending U Benzodiazepines Scrn Pending Urine Cocaine Screen Pending U Cannabinoids Screen Pending Urines Urine Color YELLOW Urine Appearance CLOUDY Urine pH (5.0 - 8.0) 6.0 Ur Specific [place] (1.010 - 1.030) >= 1.030 Urine Protein (NEGATIVE) 2+ Urine Ketones (NEGATIVE) NEGATIVE Urine Blood (NEGATIVE) NEGATIVE Urine Nitrite (NEGATIVE) NEGATIVE Urine Bilirubin (NEGATIVE) NEGATIVE Urine Urobilinogen (0.2 - 1.0 EU/dL) 0.2 Ur Leukocyte Esterase (NEGATIVE) NEGATIVE Urine RBC (0 - 1 rbc/hpf) Pending Urine WBC (0 - 1 wbc/hpf) Pending Ur Epithelial Cells (0 - 5 EPI/hpf) Pending Urine Bacteria (NONE SEEN) Pending Urine Glucose (NEGATIVE) NEGATIVE 09/26 09/26 09/26 0920 0920 0920 Chemistry Plasma Sodium (136 - 145 mmol/L) 140 Plasma Potassium (3.5 - 5.1 mmol/L) 4.3 Plasma Chloride (98 - 107 mmol/L) 104 CO2 (Enzymatic) (21 - 32 mmol/L) 26 BUN (7 - 18 mg/dL) 22 Creatinine (0.6 - 1.3 mg/dL) 1.3 Est GFR ( Amer) (mL/min) 54.01 Est GFR (Non-Af Amer) (mL/min) 44.56 Glucose (70 - 110 mg/dL) 119 Plasma Calcium (8.5 - 10.1 mg/dL) 8.8 Plasma Magnesium (1.8 - 2.4 mg/dL) 2.0 Total Bilirubin (0.0 - 1.0 mg/dL) 1.4 1.5 Direct Bilirubin (0 - 0.3 mg/dL) 0.3 AST (15 - 37 U/L) 109 105 ALT (12 - 78 U/L) 192 195 Alkaline Phosphatase (46 - 116 U/L) 157 155 Creatine Kinase (24 - 260 U/L) 219 Troponin (0.00 - 1.5 ng/mL) 0.06 B-Natriuretic Peptide Cancelled Total Protein (6.4 - 8.2 g/dL) 6.5 6.4 Albumin (3.3 - 5.0 g/dL) 3.4 3.3 Coagulation D-Dimer, Quantitative (0.27 - 0.52 ug/mLFEU) 1.85 Hematology WBC (4.5 - 11.5 K/uL) 13.2 RBC (4.00 - 5.20 M/uL) 3.83 Hgb (12.0 - 16.0 gm/dL) 11.2 Hct (36.0 - 46.0 %) 33.9 MCV (80 - 100 fL) 89 MCH (26 - 34 pg) 29 RDW (11.6 - 14.8 %) 16.0 Neut % (Auto) (50 - 75 %) 80.5 Lymph % (Auto) (25 - 40 %) 11.9 [place] % (Auto) (3 - 14 %) 6.3 Eos % (Auto) (0 - 4 %) 0.4 Baso % (Auto) (0 - 2 %) 0.9 Plt Count, EDTA (150 - 400 K/uL) 410 PUBS MCHC (31 - 37 g/dL) 33 Microbiology Date/Time Procedure - Status Source Growth 09/26 1836 Blood Culture - ORD BLOOD 09/26 1836 Blood Culture - ORD BLOOD Imaging Chest X-Ray IMPRESSION: 1. Coarse interstitial markings and slight hyperinflation suggesting underlying component of COPD/emphysema. 2. Heart size at the upper limits of normal and slight accentuation of the interstitium in the lower lungs could indicate chronic edema or fibrosis. Correlate with BNP. 3. Patchy strandy parenchymal changes of uncertain acuity, atelectasis versus early interstitial edema. 4. A left shoulder arthroplasty. Dictated by: LIANNA ROSA MD D: KATJA;09/26/16 1036 Abdominal Ultrasound IMPRESSION: 1. Thickened gallbladder wall, however this is nonspecific and more likely related to heart failure, third spacing of fluid, hypoproteinemia, anasarca etc. Acalculus cholecystitis is felt less likely but not entirely excluded. 2. Echogenic portal triads possibly secondary to periportal edema. 3. Findings called to the emergency room. Dictated by: LIANNA ROSA MD D: KATJA;09/26/[address] Scan Chest IMPRESSION: 1. Suboptimal exam secondary to patient motion. 2. Cardiomegaly with findings suggestive of heart failure and interstitial edema. 3. Third spacing of fluid indicated by pleural effusions, subcutaneous edema/anasarca and trace upper abdominal ascites. 4. Mediastinal and right infrahilar adenopathy. An underlying right middle lobe infection is not excluded but felt less likely. 5. Discussed with Dr. Ashley in the emergency room. Dictated by: LIANNA ROSA MD D: KATJA;09/26/16 1253 Echocardiogram IMPRESSION: 1. Severely reduced LV systolic function with preserved apical wall motion abnormality with mild to moderately hypokinesis of the lateral wall and more severe hypokinesis along the rest of the LV segments. LV ejection fraction is estimated around 20%. 2. Preserved RV systolic function with borderline large RV chamber size. Severely increased right ventricular systolic pressure estimated at 76 mmHg. 3. Mild to moderate mitral regurgitation and severe tricuspid regurgitation. 4. Mild concentric left ventricular hypertrophy. Dictated by: ADIS SCHMITT MD D: JULIET;09/26/16 4295 Assessment and Plan Problem List 1. Cholecystitis, acute Status Acute Onset Date Unknown Plan -Patient presented with history of chest pain/epigastric pain -Pain appears pleuritic in nature -Mild tenderness to palpation epigastric region/right upper quadrant -Ultrasound shows thickened gallbladder wall possibly secondary to ascites -Radiology cannot exclude acute acalculous cholecystitis -Follow-up liver function studies -HIDA scan in a.m. -Zosyn 3.375 g IV every 6 hours pending workup for acute cholecystitis -Surgical consultation with Dr. Vazquez in the emergency room. He Requested patient be admitted by hospitalist service with surgical consultation -Monitor 2. CHF (congestive heart failure) Status Chronic Onset Date Unknown Plan -Patient with chest x-ray findings/CT findings suggestive of pulmonary vascular congestion/cardiomegaly -Echocardiogram shows severe left ventricular dysfunction with ejection fraction of approximately 20% -Severe TR. -Severe pulmonary hypertension -Lasix, topical nitrates, KESHA inhibitor, beta blockers as tolerated -Patient will require evaluation for coronary disease -Monitor 3. Pulmonary hypertension Status Chronic Onset Date Unknown Plan -See above 4. Illicit drug use Status Chronic Onset Date Unknown Plan -Patient with history of methamphetamine usage -Patient anxious/agitated on presentation required large amounts of benzodiazepines for treatment of agitation/anxiety -Encourage patient to enroll in drug treatment program post hospitalization -Monitor 5. COPD (chronic obstructive pulmonary disease) Status Chronic Onset Date Unknown Plan -Patient with history of COPD -O2 sats good on room air -DuoNeb to 6 hours -Monitor -Encourage smoking cessation posthospitalization -Outpatient pulmonary function testing 6. UTI (urinary tract infection) Status Acute Onset Date Unknown Plan -Patient with findings of UTI on urinalysis -Zosyn -Await urine C&S 7. Hypertension Status Acute Onset Date Unknown Plan -Patient with findings of hypertension -Lisinopril, topical nitrates, Lasix -Monitor -Low-salt diet 8. Anemia Status Acute Onset Date Unknown Plan -Patient presented with mild anemia -Admission H&H 11.2/33.9, MCV 89 -Check B12, folate, iron profile -Check stool Hemoccult -Monitor 9. Abnormal LFTs (liver function tests) Status Acute Onset Date Unknown Plan -Patient with LFT abnormalities -Possibly related to passive congestion secondary to pulmonary hypertension/CHF/ acute cholecystitis -Recheck in a.m. -HIDA scan -Hepatitis profile -Monitor 10. Nicotine dependence Status Chronic Onset Date Unknown Plan -Patient with history of Nicotine dependence-smoking -Smoking cessation education -NicoDerm patch when necessary for nicotine withdrawal -Encourage smoking abstinence program post discharge Current status: Fair, unstable Anticipated discharge date: Anticipated discharge 3-4 days Anticipated discharge placement: detention facility versus assisted living Patient care time: Time in chart review, patient interview, physical exam, CPOE, and care documentation: 70 mins Visit to patient today: 2 Complexity of care: High DVT prophylaxis: Lovenox
[2016-09-26 20:46] VITALS: BP 147/99
[2016-09-26 21:00] VITALS: BP 148/104
--- NOTE | 2016-09-26 21:18 | NUR ---
PT ARRIVED TO FLOOR AT APPROX 2034 - ALERT AND ORIENTED, ABLE TO SCOOT FROM [facility] TO BED. VERY DROWSY - AWAKES TO VERBAL AND PHYSICAL STIMULI. ADMITTED PARTIALLY AT THIS TIME - VERY HARD TO KEEP AWAKE TO ANSWER QUESTIONS. WAFFLE MATTRESS IN PLACE. NO SOB, NO CHEST PAIN - NO COMPLAINTS AT THIS TIME. NO DISTRESSNOTED. 1 LITERS NC - O2 SATS AT 98%. HEART RATE AT AT 97. BLOOD PRESSURE AT 147/99 - MEDICATED WITH PO LISINOPRIL PER ORDERS. IV TO LFA SALINE LOCKED AND UNREMARKABLE. TELE SHOWS BBB - SHOWN TO DR PERKINS. CALL LIGHT WITHIN REACH. BED ALARM ON. NO FURTHRE REQUESTS AT THIS TIME.
[2016-09-26 22:01] VITALS: BP 144/95
[2016-09-26 23:14] VITALS: BP 144/104
[2016-09-27] VITALS (16 sets, daily range): BP systolic 123–145; BP diastolic 66–99
--- NOTE | 2016-09-27 02:28 | NUR ---
RESPIRATORY TREATMENT COMPLETED - PT AWAKES TO VERBAL AND PHYSICAL STIMULI - OPENS EYES, STATES OKAY AND QUICKLY FALLS BACK TO SLEEP. REMAINS VERY SLEEPY.
--- NOTE | 2016-09-27 05:22 | NUR ---
9 BEAT RUN OF VTACH NOTED - PT IS SLEEPING, HEART RATE AT 116, TELE STRIP SHOWN TO DR PERKINS - NO NEW ORDERS RECIEVED AT THIS TIME - WILL CONTINUE TO MONITOR.
--- NOTE | 2016-09-27 07:14 | Progress Note ---
Subjective General Note Date: 09/27/16 Admission Date: 09/26/2016 Hospital Day: 2 PCP: none Status: In patient Acute Care Advanced Directive: Full Code Room: 302 Admission history with progress Subjective 61-year-old female who presented to the CV, EGD with 3 day history of chest pain. Patient localized to the upper abdominal quadrant and right lower costal region. Patient was found to have amphetamines on tox screen. Initial imaging of the gallbladder showed thickening of the gallbladder wall.. CT chest showed a cardiomegaly with third spacing of the floral pleuritic effusions. Patient was also added an echocardiogram performed. This showed admitted ejection fraction of 20%. This also revealed a borderline right ventricular chamber size with severely increased right ventricular systolic pressures of 76 mmHg. Patient was diagnosed with a cardiomyopathy with pulmonary hypertension. Etiology uncertain. Other than possibility of drug-induced cardiomyopathy. She was admitted with acute cholecystitis, possibly acalculous cholecystitis. HIDA scan was ordered for further review. Day 2, patient was minimally interactive and engaged. The patient was responsive to voice Minimal responsiveness. Patient was scheduled for HIDA scan. Patient was admitted with blood cultures, labs and for follow-up with general surgery. Subjective Patient is seen and examined at bedside. Patient is minimally interactive. Patient asking to be left alone almost for the most part. Patient is not in acute distress. Patient requests to rest. Constitutional Weakness. Denies: Chills. Respiratory Denies: Wheezing. Cardiovascular Chest Pain. Gastrointestinal Abdominal Pain. Physical Exam Vital Signs / I&Os Vital Signs Date Time Temp Pulse Resp B/P Pulse O2 O2 Flow FiO2 Ox Delivery Rate 09/27 0554 98.1 09/27 0550 96 18 123/89 97 Nasal Cannula 09/27 0514 94 20 138/85 97 Nasal 1.0 Cannula 09/27 0413 96 22 143/85 97 Nasal 1.0 Cannula 09/27 0311 98 13 133/86 92 Nasal 1.0 Cannula 09/27 0227 1.0 09/27 0216 98.4 96 30 130/83 97 Nasal Cannula 09/27 0110 101 20 133/82 97 Nasal 1.0 Cannula 09/27 0010 94 19 141/91 95 Nasal 1.0 Cannula 09/26 2314 96 17 144/104 97 Nasal 1.0 Cannula 09/26 2201 98.2 105 23 144/95 99 Nasal 1.0 Cannula 09/26 2156 1.0 07/10 2111 95 09/26 2100 97 20 148/104 99 Nasal 1.0 Cannula 09/266 98.8 95 19 147/99 99 Nasal 1.0 Cannula 09/26 2032 Nasal 1.0 Cannula I&O 09/26 0800 09/26 1600 09/27 0000 Intake Total Output Total 600 Balance -600 General Appearance Mild distress HEENT EOMI Lungs scattered rhonchi, no wheeze, Neck Supple Cardiovascular Normal S1 and S2, systolic murmur Abdomen Soft, No tenderness Extremities No edema Psych/Mental Status Mental status normal LAB Results Laboratory Tests 09/26 09/26 09/26 09/26 0920 0920 0920 0920 Chemistry Plasma Sodium (136 - 145 mmol/L) 140 Plasma Potassium (3.5 - 5.1 mmol/L) 4.3 Plasma Chloride (98 - 107 mmol/L) 104 CO2 (Enzymatic) (21 - 32 mmol/L) 26 BUN (7 - 18 mg/dL) 22 Creatinine (0.6 - 1.3 mg/dL) 1.3 Est GFR ( Amer) (mL/min) 54.01 Est GFR (Non-Af Amer) (mL/min) 44.56 Glucose (70 - 110 mg/dL) 119 Plasma Calcium (8.5 - 10.1 mg/dL) 8.8 Plasma Magnesium (1.8 - 2.4 mg/dL) 2.0 Total Bilirubin (0.0 - 1.0 mg/dL) 1.5 1.4 Direct Bilirubin (0 - 0.3 mg/dL) 0.3 AST (15 - 37 U/L) 105 109 ALT (12 - 78 U/L) 195 192 Alkaline Phosphatase (46 - 116 U/L) 155 157 Creatine Kinase (24 - 260 U/L) 219 Troponin (0.00 - 1.5 ng/mL) 0.06 B-Natriuretic Peptide Cancelled Total Protein (6.4 - 8.2 g/dL) 6.4 6.5 Albumin (3.3 - 5.0 g/dL) 3.3 3.4 Procalcitonin (0 - 0.5 ng/mL) <0.5 Coagulation D-Dimer, Quantitative (0.27 - 0.52 ug/mLFEU) 1.85 Hematology WBC (4.5 - 11.5 K/uL) 13.2 RBC (4.00 - 5.20 M/uL) 3.83 Hgb (12.0 - 16.0 gm/dL) 11.2 Hct (36.0 - 46.0 %) 33.9 MCV (80 - 100 fL) 89 MCH (26 - 34 pg) 29 RDW (11.6 - 14.8 %) 16.0 Neut % (Auto) (50 - 75 %) 80.5 Lymph % (Auto) (25 - 40 %) 11.9 [place] % (Auto) (3 - 14 %) 6.3 Eos % (Auto) (0 - 4 %) 0.4 Baso % (Auto) (0 - 2 %) 0.9 Plt Count, EDTA (150 - 400 K/uL) 410 PUBS MCHC (31 - 37 g/dL) 33 09/26 09/26 09/26 09/26 0920 1030 1735 1735 Chemistry Lactic Acid (0.4 - 2.0 mmol/L) 1.4 Troponin (0.00 - 1.5 ng/mL) 0.05 Amylase (25 - 115 U/L) 35 TSH 3rd Generation (0.30 - 3.74 uIU/mL) 1.348 Toxicology Urine Opiates Screen (NEGATIVE) POSITIVE Urine Methadone Screen (NEGATIVE) NEGATIVE Ur Barbiturates Screen (NEGATIVE) NEGATIVE U Amphetamin/Meth Scrn (NEGATIVE) POSITIVE MDMA (Ecstasy) Screen (NEGATIVE) NEGATIVE U Benzodiazepines Scrn (NEGATIVE) NEGATIVE Urine Cocaine Screen (NEGATIVE) NEGATIVE U Cannabinoids Screen (NEGATIVE) NEGATIVE Urines Urine Color YELLOW Urine Appearance CLOUDY Urine pH (5.0 - 8.0) 6.0 Ur Specific [place] (1.010 - 1.030) >= 1.030 Urine Protein (NEGATIVE) 2+ Urine Ketones (NEGATIVE) NEGATIVE Urine Blood (NEGATIVE) NEGATIVE Urine Nitrite (NEGATIVE) NEGATIVE Urine Bilirubin (NEGATIVE) NEGATIVE Urine Urobilinogen (0.2 - 1.0 EU/dL) 0.2 Ur Leukocyte Esterase (NEGATIVE) NEGATIVE Urine RBC (0 - 1 rbc/hpf) NONE SEEN Urine WBC (0 - 1 wbc/hpf) 0-1 Ur Epithelial Cells (0 - 5 EPI/hpf) 0-1 Urine Bacteria (NONE SEEN) MANY (4+) Urine Glucose (NEGATIVE) NEGATIVE Urine Comment CULTURE INDICATED 09/27 09/27 09/27 09/27 0410 0410 0410 0410 Chemistry Plasma Sodium (136 - 145 mmol/L) 142 Plasma Potassium (3.5 - 5.1 mmol/L) 3.7 Plasma Chloride (98 - 107 mmol/L) 105 CO2 (Enzymatic) (21 - 32 mmol/L) 28 BUN (7 - 18 mg/dL) 22 Creatinine (0.6 - 1.3 mg/dL) 1.4 Est GFR ( Amer) (mL/min) 49.58 Est GFR (Non-Af Amer) (mL/min) 40.91 Glucose (70 - 110 mg/dL) 100 Hemoglobin A1c % (4.5 - 6.2 %) 6.0 Plasma Calcium (8.5 - 10.1 mg/dL) 7.9 Iron (35 - 150 ug/dL) 24 TIBC (260 - 445 ug/dL) 341 Iron Saturation (15 - 50 %) 7 Total Bilirubin (0.0 - 1.0 mg/dL) 1.1 AST (15 - 37 U/L) 94 ALT (12 - 78 U/L) 167 Alkaline Phosphatase (46 - 116 U/L) 125 Troponin (0.00 - 1.5 ng/mL) 0.10 Total Protein (6.4 - 8.2 g/dL) 5.3 Albumin (3.3 - 5.0 g/dL) 2.8 Triglycerides (30 - 200 mg/dL) 67 Cholesterol (140 - 200 mg/dL) 125 LDL Cholesterol, Calc (mg/dL) 71 HDL Cholesterol (32 - 96 mg/dL) 41 LDL/HDL Ratio 1.7 Cholesterol/HDL Ratio 3.0 Coronary Risk Interp (0.4 - 1.0) 0.6 Vitamin B12 (211 - 946 pg/mL) 664 Folate (>3.0 ng/mL) 31.7 Hematology WBC (4.5 - 11.5 K/uL) 10.4 RBC (4.00 - 5.20 M/uL) 3.44 Hgb (12.0 - 16.0 gm/dL) 9.8 Hct (36.0 - 46.0 %) 30.3 MCV (80 - 100 fL) 88 MCH (26 - 34 pg) 29 RDW (11.6 - 14.8 %) 15.7 Neut % (Auto) (50 - 75 %) 74 Lymph % (Auto) (25 - 40 %) 21 [place] % (Auto) (3 - 14 %) 4 Eos % (Auto) (0 - 4 %) 0 Baso % (Auto) (0 - 2 %) 1 Band Neutrophils % (0 - 8 %) 0 Metamyelocytes % (0 - 1 %) 0 Myelocytes (0 - 1 %) 0 Other Cell Type 0 Plt Count, EDTA (150 - 400 K/uL) 346 Hypochromic-Microcytic 1+ Anisocytosis (manual) 1+ PUBS MCHC (31 - 37 g/dL) 32 Serology Hepatitis A IgM Ab Pending Hep Bs Antigen Pending Hep B Core IgM Ab Pending Hepatitis C Antibody Pending Microbiology Date/Time Procedure - Status Source Growth 09/27 0125 Blood Culture - RECD BLOOD 09/27 0118 Blood Culture - RECD BLOOD 09/26 2018 MRSA Screen - RECD NASAL 09/26 103 Urine Culture - RECD URINE CC Assessment and Plan Problem List 1. CHF (congestive heart failure) Status Chronic Onset Date Unknown Plan Congestive heart failure with cardiomyopathy. 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 Optimize hydration balance with diuresis. Cardiology referral. Consult with Dr. Cartwright 2. Pulmonary hypertension Status Chronic Onset Date Unknown Plan Significant pulmonary hypertension with history of methamphetamine use. Ejection fraction of 20%. Consulting cardiology for further recommendations. 3. Cholecystitis, acute Status Acute Onset Date Unknown Plan Thickening of the gallbladder with positive Butler sign. Seen with gram- negative justa in the blood HIDA scan to Follow-up with general surgery. This may Require a percutaneous drainage based on her cardiac function. 10. Cardiomyopathy with ejection fraction 20% with elevated right sided heart pressures 4. Illicit drug use Status Chronic Onset Date Unknown Plan Methamphetamine found on the tox screen. Considered alternatives for discontinuing use. Etiology for the Cardiomyopathy is likely related, related to drug use. Outpatient or inpatient care facility should be considered 5. COPD (chronic obstructive pulmonary disease) Status Chronic Onset Date Unknown Plan Primary history of COPD. This may be a contributing factor to the pulmonary hypertension. 6. UTI (urinary tract infection) Status Acute Onset Date Unknown Plan Patient is currently on Zosyn; awaiting the cultures from UTI. Gram-negative justa in the blood. 7. Hypertension Status Acute Onset Date Unknown Plan Monitor blood pressure. Currently on lisinopril, topical nitrates and Lasix Maintain a Low-salt diet. 8. Anemia Status Acute Onset Date Unknown Plan Patient was anemic on admission. With initially admission H&H of 11.2/33.9, MCV of 89 B12, folate levels normal Iron panel showing a low total iron and low total iron-binding capacity. Patient having signs of iron deficiency anemia versus chronic disease. Hemoccult stool is pending 9. Bacteremia Plan Blood cultures on admission revealing gram-negative justa. Awaiting sensitivities. Repeat blood cultures 10. Abnormal LFTs (liver function tests) Status Acute Onset Date Unknown Plan Acute hepatitis panel. Awaiting results of serology Current status: poor guarded Anticipated discharge date: 3-4 days Anticipated discharge placement: home Patient care time: Time spent in chart review, patient interview, physical exam, CPOE, and care documentation: 45 minutes Visit to patient today: Complexity of care: high to moderate. E&M Codes Rounding: Inpt-High/[id number]
--- NOTE | 2016-09-27 07:29 | NUR ---
Patient had 5 beat run v-tach. Denies chest pain. MD aware. Will continue to monitor.
--- NOTE | 2016-09-27 08:00 | NUR ---
Patient in bed resting at this time. Denies pain and nausea. NPO at this time. Patient will be having a NUC med Hepatobiliary study. Patient encouraged to cough and deep breath frequently. No sob noted. NC 1L Sats 98%. Patient up to BSC 1 person assistance. Continues to have loose stool. No complaints at this time. Pleasant and cooperative with care. Will continue to monitor.
--- NOTE | 2016-09-27 10:38 | NUR ---
Patient down to NUC med via wheelchair accompanied by LABOR ARBITRATOR. Ok to take patient off tele at this time during Nuc Med study per MD. Chart sent with patient. Will continue to monitor.
--- NOTE | 2016-09-27 12:00 | NUR ---
Unable to take BS at this time. Patient in Nuc Med at this time. Will continue to monitor.
--- NOTE | 2016-09-27 12:08 | ED DISCHARGE INSTRUCTIONS ---
Patient: IVY ARIAS General Instructions [facility] VisitID: [id number] [address] [place] [address] 61y, F Registration Date/Time: 09/26/2016 Acute moderate congestive heart failure. (Electronically signed by Jenifer Ashley MD 09/26/2016 22:34)
--- NOTE | 2016-09-27 12:08 | ED MED RECONCILIATION SUMMARY ---
Patient: IVY ARIAS Medication Reconciliation Report [facility] VisitID: [id number] [address] [place] [address] 61y, F Registration Date/Time: 09/26/2016 Weight: 49.8 kg Height/Length: 62 in. BMI: 20.1 ALLERGIES: Morphine and Related The patient's Home Medications are listed below: NONE. The source(s) of the original Home Medication information: Not obtained. The following Medications were given to the patient in the Emergency Department: IV NS IV Fluids bolus 500 mL over 30 minute(s), then 100 mL/hr, administered: 09/26/2016 9:45:00 AM Toradol [IVP] IVP 30 mg, administered: 09/26/2016 9:45:00 AM Ativan [IVP] IVP 1 mg, administered: 09/26/2016 9:46:00 AM Ativan [IVP] IVP 1 mg, administered: 09/26/2016 11:31:00 AM Ativan [IVP] IVP 2 mg, administered: 09/26/2016 12:07:00 PM Lasix [IVP] IVP 80 mg, administered: 09/26/2016 1:31:00 PM Dilaudid [IVP] IVP 1 mg, administered: 09/26/2016 1:42:00 PM The following Medications were prescribed to the patient: None.
--- NOTE | 2016-09-27 12:08 | ED MED RECONCILIATION SUMMARY ---
Patient: IVY ARIAS Medication Reconciliation Report [facility] VisitID: [id number] [address] [place] [address] 61y, F Registration Date/Time: 09/26/2016 Weight: 49.8 kg Height/Length: 62 in. BMI: 20.1 ALLERGIES: Morphine and Related The patient's Home Medications are listed below: NONE. The source(s) of the original Home Medication information: Not obtained. The following Medications were given to the patient in the Emergency Department: IV NS IV Fluids bolus 500 mL over 30 minute(s), then 100 mL/hr, administered: 09/26/2016 9:45:00 AM Toradol [IVP] IVP 30 mg, administered: 09/26/2016 9:45:00 AM Ativan [IVP] IVP 1 mg, administered: 09/26/2016 9:46:00 AM Ativan [IVP] IVP 1 mg, administered: 09/26/2016 11:31:00 AM Ativan [IVP] IVP 2 mg, administered: 09/26/2016 12:07:00 PM Lasix [IVP] IVP 80 mg, administered: 09/26/2016 1:31:00 PM Dilaudid [IVP] IVP 1 mg, administered: 09/26/2016 1:42:00 PM The following Medications were prescribed to the patient: None.
--- NOTE | 2016-09-27 12:08 | ED DISCHARGE INSTRUCTIONS ---
Patient: IVY ARIAS General Instructions [facility] VisitID: [id number] [address] [place] [address] 61y, F Registration Date/Time: 09/26/2016 Acute moderate congestive heart failure. (Electronically signed by Jenifer Ashley MD 09/26/2016 22:34)
--- NOTE | 2016-09-27 12:08 | ED MAR SUMMARY ---
..... Medication Administration Record [facility] [address] [place] [address] Patient: IVY ARIAS Visit ID: [id number] 61y, F Weight: 49.8 kg Height/Length: 62 in BMI: 20.1 ALLERGIES: Morphine and Related Start 09:09/26/2016 Maribell Carlos R.N., Stop 10:09/26/2016 Maki Decker R.N. Medication Administered: IV NS (SALINE), Dose: IV Fluids over 5 hour(s), Rate: 100 mL/hr, Bolus: 500 mL over 30 minute(s), Dispensed: 1000 mL bag, Site: #1 left forearm. Medication Ordered: IV NS : initial bolus 500 mL (1000 mL/hr), then 100 mL/hr (NOW). Given 09/26/2016 Maribell Carlos R.N. Medication Administered: TORADOL [IVP], Dose: 30 mg IVP over 1 minute(s), Site: #1 left forearm. Medication Ordered: Toradol IV 30 mg (NOW). Given 09:09/26/2016 Maribell Carlos R.N. Medication Administered: ATIVAN [IVP] (LORAZEPAM), Dose: 1 mg IVP over 1 minute(s), Site: #1 left forearm. Medication Ordered: Ativan IV 1 mg (HIGH ALERT MEDICATION, NOW). Given 11:09/26/2016 Maribell Carlos R.N. Medication Administered: ATIVAN [IVP] (LORAZEPAM), Dose: 1 mg IVP over 1 minute(s), Site: #1 left forearm. Medication Ordered: Ativan IV 1 mg (HIGH ALERT MEDICATION, NOW). Given 12:09/26/2016 Maribell Carlos R.N. Medication Administered: ATIVAN [IVP] (LORAZEPAM), Dose: 2 mg IVP over 2 minute(s), Site: #1 left forearm. Medication Ordered: Ativan IV 2 mg (HIGH ALERT MEDICATION, NOW). Given 13:31 09/26/2016 Maribell Carlos R.N. Medication Administered: LASIX [IVP], Dose: 80 mg IVP over 1 minute(s), Site: #2 left forearm. Medication Ordered: Lasix IV 80 mg (NOW). Given 13:42 09/26/2016 Maribell Carlos R.N. Medication Administered: DILAUDID [IVP] (HYDROMORPHONE HCL PF), Dose: 1 mg IVP over 1 minute(s), Site: #2 left forearm. Medication Ordered: Dilaudid IV 1 mg (HIGH ALERT MEDICATION, NOW).
--- NOTE | 2016-09-27 12:08 | ED MAR SUMMARY ---
..... Medication Administration Record [facility] [address] [place] [address] Patient: IVY ARIAS Visit ID: [id number] 61y, F Weight: 49.8 kg Height/Length: 62 in BMI: 20.1 ALLERGIES: Morphine and Related Start 09:09/26/2016 Maribell Carlos R.N., Stop 10:09/26/2016 Maki Decker R.N. Medication Administered: IV NS (SALINE), Dose: IV Fluids over 5 hour(s), Rate: 100 mL/hr, Bolus: 500 mL over 30 minute(s), Dispensed: 1000 mL bag, Site: #1 left forearm. Medication Ordered: IV NS : initial bolus 500 mL (1000 mL/hr), then 100 mL/hr (NOW). Given 09/26/2016 Maribell Carlos R.N. Medication Administered: TORADOL [IVP], Dose: 30 mg IVP over 1 minute(s), Site: #1 left forearm. Medication Ordered: Toradol IV 30 mg (NOW). Given 09:09/26/2016 Maribell Carlos R.N. Medication Administered: ATIVAN [IVP] (LORAZEPAM), Dose: 1 mg IVP over 1 minute(s), Site: #1 left forearm. Medication Ordered: Ativan IV 1 mg (HIGH ALERT MEDICATION, NOW). Given 11:09/26/2016 Maribell Carlos R.N. Medication Administered: ATIVAN [IVP] (LORAZEPAM), Dose: 1 mg IVP over 1 minute(s), Site: #1 left forearm. Medication Ordered: Ativan IV 1 mg (HIGH ALERT MEDICATION, NOW). Given 12:09/26/2016 Maribell Carlos R.N. Medication Administered: ATIVAN [IVP] (LORAZEPAM), Dose: 2 mg IVP over 2 minute(s), Site: #1 left forearm. Medication Ordered: Ativan IV 2 mg (HIGH ALERT MEDICATION, NOW). Given 13:31 09/26/2016 Maribell Carlos R.N. Medication Administered: LASIX [IVP], Dose: 80 mg IVP over 1 minute(s), Site: #2 left forearm. Medication Ordered: Lasix IV 80 mg (NOW). Given 13:42 09/26/2016 Maribell Carlos R.N. Medication Administered: DILAUDID [IVP] (HYDROMORPHONE HCL PF), Dose: 1 mg IVP over 1 minute(s), Site: #2 left forearm. Medication Ordered: Dilaudid IV 1 mg (HIGH ALERT MEDICATION, NOW).
--- NOTE | 2016-09-27 13:06 | NUR ---
Patient back from [facility]. No complaint at this time. Patient resting. Will continue to monitor.
--- NOTE | 2016-09-27 13:36 | DIAGNOSTIC IMAGING REPORT ---
PROCEDURE: NM HEPATOBILIARY IMAGING INDICATION: r/O Cholecystitis TECHNIQUE: 8 mCi of technetium-99m Choletec was injected intravenously and images were acquired over 95 minutes. Subsequently, fatty shake was given with calculation of gallbladder ejection fraction. COMPARISON: Abdominal ultrasound 09/26/2016. FINDINGS: There is homogeneous radiotracer uptake of throughout the liver. Activity was noted in the right upper quadrant at 10:12 minutes and additional anterior and right lateral views are obtained at 60, 75 and 95 minutes to confirm that the activity was indeed in the gallbladder. Ejection fraction was 68% at 43 minutes. IMPRESSION: 1. Normal hepatobiliary scan and ejection fraction. No evidence of acute cholecystitis 2. Results discussed with Dr. Perez
--- NOTE | 2016-09-27 17:43 | NUR ---
Patient complained of anxiety. Ativan 0.5 mg given IV. Patient states "I want to go home now". RN instructed patient that she would be leaving AMA. Patient willing to stay at this time. Tolerating PO intake. Will continue to monitor.
--- NOTE | 2016-09-27 18:48 | NUR ---
Patient complained of generalized pain. MD notified. Tylenol 650 mg given PO. Patient anxiety slightly better. Ativan effective. Will continue to monitor.
--- NOTE | 2016-09-27 18:52 | NUR ---
Patient complained of not being able to smoke. Nicotine patch offered and patient will to try patch at this time. Will continue to monitor.
--- NOTE | 2016-09-27 19:56 | NUR ---
PT RESTING IN BED. ALERT AND ORIENTED X3. JOINT PAIN AT A 7/10 - DESCRIBED CONSTANT ACHE. PT COMPLAINT OF CHEST/EPIGASTRIC "HEAVINESS" - PT STATES THIS THE SAME ON ADMIT AND HAS NOT GONE AWAY. PT STATES A "LITTLE" SOB. 1 LITER NC - O2 SATS AT 100%. IV TO LFA UNREMARKABLE - INFUSING AT 100/HR. HEART RATE AT 98, LAST BLOOD PRESSURE AT 126/83. WAFFLE MATTRESS IN PLACE. NO SCDS - HEPARIN SC. BED ALARM ON. CALL LIGHT WITHIN REACH.
--- NOTE | 2016-09-27 20:37 | NUR ---
SPOKE WITH DR PERKINS - AWARE OF PTS JOINT PAIN AT A 09/26 - TYLENOL INEFFECTIVE. DR AWARE OF PTS COMPLAINTS OF CHEST/EPIGASTRIC "HEAVINESS" WHICH PT STATES IS THE SAME PAIN SHE CAME IN WITH. AWARE OF LAST BLOOD GLUCOSE AT 185. NEW ORDERS RECIEVED FOR TORADOL IV X1 AND FLUID RATE CHANGE - ORDERS WRITTEN, READ BACK AND FAXED TO PHARMACY.
--- NOTE | 2016-09-27 21:42 | NUR ---
PT ON ROOM AIR AT THIS TIME - O2 SATS AT 99%.
--- NOTE | 2016-09-27 23:59 | NUR ---
DR PERKINS CALLED - MENTAL HEALTH PROFESSIONAL HAS CLEARED PT TO LEAVE TONIGHT, PTS MOM HAS BEEN CALLED. WILL COME AND TALK WITH PT. NO IV IN PLACE. PT HAS CHANGED BACK INTO HIS OWN CLOTHES. RESTING IN BED AT THIS TIME.
--- NOTE | 2016-09-28 00:03 | NUR ---
PT WAS RESTLESS, IN AND OUT OF BED, COMPLAINING ABOUT TELE WIRES, CONTINUOUS PULSE OX - PT STATES "I CANT GET COMFORTABLE" - MEDICATED WITH IV ATIVAN. BED ALARM REMAINS ON - WILL CONTINUE TO MONITOR.
[2016-09-28 02:02] VITALS: BP 134/85
--- NOTE | 2016-09-28 03:06 | NUR ---
PT HALLUCINATING - PT STATES "SOMETHING IS GOING ON IN MY ROOM" "THERE ARE PEOPLE IN HERE" , PT CONTINUE TO DENY ALCOHOL/DRUG USE. PT IS ANXIOUS, UNABLE TO COMFY IN BED. DR PERKINS AWARE OF PTS CURRENT STATUS. NO NEW ORDERS RECIEVED AT THIS TIME.
--- NOTE | 2016-09-28 04:39 | NUR ---
PT COMPLAINTS OF "A LITTLE" SOB, O2 SATS AT 99% ON ROOM AIR, PT STATES "LESS" CHEST PRESSURE THAN EARLIER IN THE SHIFT. GENREALIZED CONSTANT ACHE PER PT. AGGITATED, RESTLESS. MEDICATED WITH ATIVAN IV. BED ALARM ON.
--- NOTE | 2016-09-28 06:04 | NUR ---
DR PERKINS ON UNIT - AWARE OF PTS CURRENT STATUS, PAIN AT A 4/10, SLIGHT SOB, LESS CHEST PRESSURE, VITAL SIGNS, CLEAR LUNGS AND INCREASE AGGITATIONS.
--- NOTE | 2016-09-28 06:30 | NUR ---
DR REYES IS WITH THE PT TO ASSESS.
--- NOTE | 2016-09-28 06:42 | NUR ---
RESPIRATORY THERAPIST IN TO PROVIDE TREATMENT EARLY - OKAYED BY DR REYES.
[2016-09-28 06:54] VITALS: BP 142/96
--- NOTE | 2016-09-28 07:15 | Progress Note ---
Subjective General Note Date: 09/28/16 Admission Date: 09/26/2016 Hospital Day: 3 PCP: none Status: In patient Acute Care Advanced Directive: Full Code Room: 302 Admission history with progress Subjective 61-year-old female who presented to the CV, EGD with 3 day history of chest pain. Patient localized to the upper abdominal quadrant and right lower costal region. Patient was found to have amphetamines on tox screen. Initial imaging of the gallbladder showed thickening of the gallbladder wall.. CT chest showed a cardiomegaly with third spacing of the floral pleuritic effusions. Patient was also added an echocardiogram performed. This showed admitted ejection fraction of 20%. This also revealed a borderline right ventricular chamber size with severely increased right ventricular systolic pressures of 76 mmHg. Patient was diagnosed with a cardiomyopathy with pulmonary hypertension. Etiology uncertain. Other than possibility of drug-induced cardiomyopathy. She was admitted with acute cholecystitis, possibly acalculous cholecystitis. HIDA scan was ordered for further review. Day 2, patient was minimally interactive and engaged. The patient was responsive to voice Minimal responsiveness. HIDA scan completed showing no evidence of acholic cholecystitis. Age is likely a result of the heart failure. Patient was complaining more of irritation and agitation on with pain On day 3. Patient given increased levels of Ativan along with Toradol. Cardiac function; attempt to optimize with the starting of Lasix, beta lorena and KESHA inhibitor. Cardiology consult to review the cardiomyopathy and recommended further. Subjective Patient reports of weakness, tiredness. Mildly agitated and irritated. Patient has been generalized achiness and pain. Patient more alert today, having mealtime as planned. Constitutional Denies: Fever, Chills, Sweats. Eyes Denies: Conjunctival Inflammation. Respiratory SOB w/exertion. Cardiovascular Edema, Light-headedness. Denies: Orthopnea. Gastrointestinal Abdominal Pain. Denies: Diarrhea. Neurological Confusion, Other (hypersomnolence). Physical Exam Vital Signs / I&Os Vital Signs Date Time Temp Pulse Resp B/P Pulse O2 O2 Flow FiO2 Ox Delivery Rate 09/28 0654 98.1 103 27 142/96 98 Room Air 09/28 0456 Room Air 09/28 0202 97.7 104 28 134/85 95 Room Air 09/27 2221 98.4 104 21 137/84 98 Nasal 1.0 Cannula 09/27 2014 98 09/27 1944 Nasal 1.0 Cannula 09/27 1940 1.0 09/27 1821 1.0 09/27 1814 99.0 101 26 129/83 99 Nasal 1.0 Cannula 09/27 1749 99.0 09/27 1400 95 22 125/77 95 Nasal 1.0 Cannula 09/27 1323 1.0 09/27 1318 98.6 98 22 123/66 100 Nasal 1.0 Cannula 09/27 1304 98.6 103 22 123/66 100 Nasal 1.0 Cannula 09/27 1000 97 21 128/81 98 Nasal 1.0 Cannula 09/27 0917 97.9 09/27 0905 18 23 133/73 98 Nasal 1.0 Cannula 09/27 0800 96 24 145/99 98 Nasal 1.0 Cannula 09/27 0745 Nasal 1.0 Cannula 09/27 0734 1.0 09/27 0720 95 18 141/94 98 Nasal 1.0 Cannula I&O 09/27 0800 09/27 1600 09/28 0000 Intake Total 594 1434 Output Total 1275 850 650 Balance -681 -850 784 General Appearance Oriented X3, Cooperative Lungs Normal air movement, scattered rhonchi, no wheeze Neck No masses, No thyromegaly Cardiovascular Normal S1 and S2, systolic murmur Abdomen Soft Extremities Normal pulses Neurological No lateralizing signs LAB Results Laboratory Tests 09/28 0340 Chemistry Plasma Sodium (136 - 145 mmol/L) 138 Plasma Potassium (3.5 - 5.1 mmol/L) 3.6 Plasma Chloride (98 - 107 mmol/L) 103 CO2 (Enzymatic) (21 - 32 mmol/L) 26 BUN (7 - 18 mg/dL) 22 Creatinine (0.6 - 1.3 mg/dL) 1.6 Est GFR ( Amer) (mL/min) 42.50 Est GFR (Non-Af Amer) (mL/min) 35.06 Glucose (70 - 110 mg/dL) 116 Plasma Calcium (8.5 - 10.1 mg/dL) 8.3 Plasma Magnesium (1.8 - 2.4 mg/dL) 2.0 Total Bilirubin (0.0 - 1.0 mg/dL) 0.7 AST (15 - 37 U/L) 61 ALT (12 - 78 U/L) 139 Alkaline Phosphatase (46 - 116 U/L) 110 Total Protein (6.4 - 8.2 g/dL) 5.7 Albumin (3.3 - 5.0 g/dL) 2.8 Hematology WBC (4.5 - 11.5 K/uL) 11.4 RBC (4.00 - 5.20 M/uL) 3.42 Hgb (12.0 - 16.0 gm/dL) 9.8 Hct (36.0 - 46.0 %) 30.5 MCV (80 - 100 fL) 89 MCH (26 - 34 pg) 29 RDW (11.6 - 14.8 %) 16.0 Neut % (Auto) (50 - 75 %) 70.7 Lymph % (Auto) (25 - 40 %) 17.5 Sutter % (Auto) (3 - 14 %) 9.1 Eos % (Auto) (0 - 4 %) 2.1 Baso % (Auto) (0 - 2 %) 0.6 Plt Count, EDTA (150 - 400 K/uL) 337 PUBS MCHC (31 - 37 g/dL) 32 Microbiology Date/Time Procedure - Status Source Growth 09/27 1300 Blood Culture - CAN BLOOD Cancelled: DUPLICATE ORDER NOT NEEDED PER MP ZIMMERMAN 09/27 1300 Blood Culture - CAN BLOOD Cancelled: DUPLICATE ORDER NOT NEEDED PER MP ZIMMERMAN Assessment and Plan Problem List 1. CHF (congestive heart failure) Status Chronic Onset Date Unknown Plan An element of heart failure with an ejection fraction of 20%. Cardiology consultation. Optimizing patient of cardiac function. Starting metoprolol 25 mg twice a day, Lasix 20 mg twice a day KESHA inhibitor lisinopril milligrams daily 2. Pulmonary hypertension Status Chronic Onset Date Unknown Plan Seen with the element of pulmonary hypertension with high right-sided pulmonary pressures. Cardiology consultation. May consider a right-sided heart catheter. Gentle diuresis 3. Cholecystitis, acute Status Acute Onset Date Unknown Plan Rule out cholecystitis based on HIDA scan. The scan was essentially normal No sign of bladder wall thickening. 4. Illicit drug use Status Chronic Onset Date Unknown Plan Methamphetamine on admission. Likely contributing causation for the heart failure Discussion regarding the cessation from all cardiotoxic drug use. 5. COPD (chronic obstructive pulmonary disease) Status Chronic Onset Date Unknown Plan History COPD; duo nebs as needed. Encourage to avoid exposure to allergens. 6. UTI (urinary tract infection) Status Acute Onset Date Unknown Plan Following the urinary tract cultures Sensitivities to follow Continue with the Zosyn until sensitivities are available. 7. Hypertension Status Acute Onset Date Unknown Plan Monitor blood pressure daily. Currently on lisinopril, topical nitrates and Lasix Maintain a Low-salt diet. 8. Anemia Status Acute Onset Date Unknown Plan Patient was anemic on admission. With initially admission H&H of 11.2/33.9, MCV of 89 Starting ferrous sulfate 325 mg daily Current status: poor guarded Anticipated discharge date: 3-4 days Anticipated discharge placement: home Patient care time: Time spent in chart review, patient interview, physical exam, CPOE, and care documentation: 45 minutes Visit to patient today: Complexity of care: high to moderate. E&M Codes Rounding: Inpt-High/[id number]
--- NOTE | 2016-09-28 11:25 | NUR ---
PT UP AND DOWN, IN AND OUT OF BED, STATING "I JUST DON'T FEEL GOOD" WHEN QUESTIONED FURTHER SHE STATES SHE IS FEELING DIZZY AND NAUSEATRED. BP TAKEN AND IS 136/92, HEART RATE 85 AND SINUS. PT STATES SHE IS FEELING VERY ANXIOUS. WILL MEDICATE FOR NAUSEA AND ANXIETY.
[2016-09-28 11:44] VITALS: BP 136/92
[2016-09-28 14:42] VITALS: BP 139/93
--- NOTE | 2016-09-28 14:45 | NUR ---
NUTRITION NOTE: Pt admitted with dx/o CHF and cholecystitis. She is currently on a cardiac diet and tolerating meals per nsg report (see I&O). Pt with PMH of COPD, illicit drug use, HTN, UTI, anemia. Noted a1c 6.0 and monitoring glucose values 113-185 ranges. No hx of diabetes noted in H&P, continue to monitor if warranted. BMI; 23.9 (wnl), no weight loss desired, however, fluctuations expected with lasix rx/diuretic tx and CHF dx. RD to follow up with complete asessement per protocol.
--- NOTE | 2016-09-28 15:36 | NUR ---
PATIENT STATES SHE IS PAINFUL, WHEN ASKED WHERE SHE STATES "THE SAME PLACE I HAVE BEEN". PATIENT BACK TO SLEEP. BED ALARM TURNED ON. WILL MONITOR, CALL LIGHT WITHIN REACH.
--- NOTE | 2016-09-28 16:51 | NUR ---
PATIENT IS MOANING IN PAIN, STATES SHE HURTS ALL OVER, ATIVAN WAS GIVEN EARLIER AND WAS INEFFEFCTIVE. PAGED DR PERKINS TO LET HIM KNOW THAT SHE IS HURTING ALL OVER AND CRAWLING ON THE FLOOR. DR PERKINS ORDERED TORADOL AND SOME LABS, PATIENT BACK TO BED, BED ALARM, IS ON.
--- NOTE | 2016-09-28 18:50 | NUR ---
PATIENT VERBALIZED IN FRONT OF THIS RN AND JAVIER RN THAT SHE DOES METH AND A LITTLE OF HEROIN. STATES SHE SMOKES IT, AND WHEN ASKED HOW MUCH HEROIN SHE TAKES SHE STATES "5 TO 10 PIECE" AND WHEN ASKED HOW OFTEN SHE SAID FOR 8 YEARS, AND WHEN ASKED HOW MANY SHES STATED "EVERY DAY" AND WHEN CLARIFIED AND REPEATED BACK TO THE PATIENT "EVERY DAY 5 TO 10 PIECE FOR 8 YEARS". AND ALSO THAT SHE DRINKS 1-2 SHOTS OF TEQUILA EVERY NOW AND THEN.
[2016-09-28 19:05] VITALS: BP 109/76
[2016-09-28 21:50] VITALS: BP 137/94
--- NOTE | 2016-09-28 22:50 | NUR ---
Sitter at bedside, pt is alert to name and birthdate - needs reorientation to place and time. No complaints of pain, no chest pain, no sob. Pt is impulsive, getting out of bed frequently, trying to push pass staff, states "I want to go smoke". Pt is unsteady on feet. Not using call light. Pulling at lines. Medicated with IV ativan. IV infusing to LFA unremarkable, infusing at 75/hr. IV saline locked and unremarkable to RAC. Will continue to monitor.
--- NOTE | 2016-09-28 23:23 | NUR ---
PT VERY IMPULSIVE GETTING UP OUT OF BED FREQUENTLY, PT UNSTABLE ON HER FEET. PT CUSSING AT STAFF WHEN THEY ARE TRYING TO ASSIST HER WITH CARE. PT MOVES ABOUT IN BED ON HER OWN TURNING SIDE TO SIDE FREQUENTLY WELL. STAFF IS HAVING TO SIT IN ROOM WITH PT FOR HER SAFETY DUE TO HER CONSTANTLY TRYING TO GET OUT OF BED AND BEING UNSTABLE ON HER FEET.
[2016-09-29 02:28] VITALS: BP 135/94
--- NOTE | 2016-09-29 04:37 | NUR ---
Sitter at bedside, pt is uncooperative to care, unstable on feet, pulling at lines, not following commands, pt got on the floor - crawling around. Ativan ineffective. Dr Peguero aware. 4 point soft restraints placed. Will continue to monitor.
[2016-09-29 05:30] VITALS: BP 132/94
--- NOTE | 2016-09-29 06:52 | NUR ---
PT SLEEPING, NO DISTRESS NOTED. UNABLE TO GIVE METHADONE ORDERED - PT NOT AWAKING ENOUGH TO FOLLOW COMMANDS AND TAKE PILLS. PT WAS JUST RECENTLY REPOSITIONED, ATTENDS CHECKED AND DRY. LINENS CHANGED. CAPNOGRAPHY READING CO2 AT 29, O2 SATS AT 98% ON 1 LITER NC, HEART RATE AT 77. PT IS WITHIN SITE OF NURSES STATION.
--- NOTE | 2016-09-29 07:01 | Progress Note ---
Subjective General Note Date: 09/29/16 Admission Date: 09/26/2016 Hospital Day: 4 PCP: none Status: In patient Acute Care Advanced Directive: Full Code Room: 302 Admission history with progress Subjective 61-year-old female who presented to the CV, EG with 3 day history of chest pain. Patient localized to the upper abdominal quadrant and right lower costal region. Patient was found to have amphetamines on tox screen. Initial imaging of the gallbladder showed thickening of the gallbladder wall.. CT chest showed a cardiomegaly with third spacing of the floral pleuritic effusions. Patient was also added an echocardiogram performed. This showed admitted ejection fraction of 20%. This also revealed a borderline right ventricular chamber size with severely increased right ventricular systolic pressures of 76 mmHg. Patient was diagnosed with a cardiomyopathy with pulmonary hypertension. Etiology uncertain. Other than possibility of drug-induced cardiomyopathy. She was admitted with acute cholecystitis, possibly acalculous cholecystitis. HIDA scan was ordered for further review. Day 2, patient was minimally interactive and engaged. The patient was responsive to voice Minimal responsiveness. HIDA scan completed showing no evidence of acholic cholecystitis. Age is likely a result of the heart failure. Patient was complaining more of irritation and agitation on with pain On day 3. Patient given increased levels of Ativan along with Toradol. Cardiac function; attempt to optimize with the starting of Lasix, beta lorena and KESHA inhibitor. Cardiology consult to review the cardiomyopathy and recommended further optimization seizure treatment. No formal consultation was performed. Overnight patient was agitated and hypersomnolent. Patient was given morphine for control. Recommendations for patient to be seen as an outpatient. Patient's medications were optimized. Patient was started on carvedilol, and spironolactone. Discontinued metoprolol and the Lasix. Subjective Patient reports that she is feeling fine, but sleepy. Patient wakes up at the call of her name. Patient states that she would like to get out of bed and have the restraints removed. She reports no chest pain, abdominal pain. No vomiting , no diarrhea. Constitutional Weakness, Malaise. Denies: Chills. Physical Exam Vital Signs / I&Os Vital Signs Date Time Temp Pulse Resp B/P Pulse O2 O2 Flow FiO2 Ox Delivery Rate 09/29 0530 97.9 81 29 132/94 98 Room Air 09/29 0228 86 22 135/94 95 09/28 2150 97.9 90 22 137/94 100 Room Air 09/28 2045 Room Air 09/28 1905 88 31 109/76 99 Room Air 09/28 1442 97.9 85 30 139/93 99 09/28 1144 84 28 136/92 100 Room Air I&O 09/28 0800 09/28 1600 09/29 0000 Intake Total 1505 1469 240 Output Total 1100 425 400 Balance 405 1044 -160 General Appearance Mild distress, hypersomnolent Arousable Cardiovascular Regular rate and rhythm Abdomen Soft Psych/Mental Status Confused LAB Results Laboratory Tests 09/28 09/29 1715 0438 Chemistry Plasma Sodium (136 - 145 mmol/L) 135 Plasma Potassium (3.5 - 5.1 mmol/L) 4.9 Plasma Chloride (98 - 107 mmol/L) 102 CO2 (Enzymatic) (21 - 32 mmol/L) 20 BUN (7 - 18 mg/dL) 25 Creatinine (0.6 - 1.3 mg/dL) 2.2 Est GFR ( Amer) (mL/min) 29.43 Est GFR (Non-Af Amer) (mL/min) 24.28 Glucose (70 - 110 mg/dL) 132 Plasma Calcium (8.5 - 10.1 mg/dL) 8.2 Plasma Magnesium (1.8 - 2.4 mg/dL) 2.2 Total Bilirubin (0.0 - 1.0 mg/dL) 1.0 AST (15 - 37 U/L) 110 ALT (12 - 78 U/L) 190 Alkaline Phosphatase (46 - 116 U/L) 124 C-Reactive Protein (0.0 - 0.9 mg/dL) 0.6 Total Protein (6.4 - 8.2 g/dL) 5.9 Albumin (3.3 - 5.0 g/dL) 2.9 Hematology WBC (4.5 - 11.5 K/uL) 14.6 RBC (4.00 - 5.20 M/uL) 3.94 Hgb (12.0 - 16.0 gm/dL) 11.3 Hct (36.0 - 46.0 %) 35.3 MCV (80 - 100 fL) 90 MCH (26 - 34 pg) 29 RDW (11.6 - 14.8 %) 16.3 Neut % (Auto) (50 - 75 %) 75 Lymph % (Auto) (25 - 40 %) 21 [place] % (Auto) (3 - 14 %) 2 Eos % (Auto) (0 - 4 %) 1 Baso % (Auto) (0 - 2 %) 1 Band Neutrophils % (0 - 8 %) 0 Metamyelocytes % (0 - 1 %) 0 Myelocytes (0 - 1 %) 0 Other Cell Type 0 Plt Count, EDTA (150 - 400 K/uL) 398 Anisocytosis (manual) 1+ PUBS MCHC (31 - 37 g/dL) 32 ESR Westergren (0 - 30 mm/hr) 11 Assessment and Plan Problem List 1. CHF (congestive heart failure) Status Chronic Onset Date Unknown Plan Drug-induced cardiomyopathy Follow by cardiology as an outpatient Optimize cardiac function Start carvedilol versus metoprolol Start spironolactone versus Lasix 2. Pulmonary hypertension Status Chronic Onset Date Unknown Plan Monitor. Continue to follow as an outpatient. May consider endothelin receptor agonist Bosentin or a PDE 5 inhibitor 3. COPD (chronic obstructive pulmonary disease) Status Chronic Onset Date Unknown Plan Using the inhalers as needed. Stable. 4. UTI (urinary tract infection) Status Acute Onset Date Unknown Plan Excruciating coli. Pansensitive Stop the Zosyn and start ceftriaxone. The thought is to reduce stress on the kidney. 5. Illicit drug use Status Chronic Onset Date Unknown Plan Ongoing discussion with patient regarding her illicit drug use. 6. Hypertension Status Acute Onset Date Unknown Plan Blood pressure well controlled. No changes 7. Anemia Status Acute Onset Date Unknown Plan Provide patient's nutritional status. Current status: poor guarded Anticipated discharge date: 2-3 days Anticipated discharge placement: home Patient care time: Time spent in chart review, patient interview, physical exam, CPOE, and care documentation: 35 minutes Visit to patient today: Complexity of care: high to moderate. E&M Codes Rounding: Inpt-High/[id number]
--- NOTE | 2016-09-29 10:07 | NUR ---
NUTRITION ASSESSMENT: S: Pt admitted with dx/o CHF, cholecystitis. PMH includes illicit drug use, COPD, DJD, HTN, see H&P for details. Pt ate ~75-80% for breakfast and lunch and then ~10% for dinner. Today pt not alert or awake enough to take meds or eat meals per report (see pt notes). Per MD assessment/prog notes; pt condition "gaurded". O: Diet Rx: Cardiac Mech Soft Thin NKFA Wts: 59 Kg Ht: 62" IBW: 58-65 kg BMI: 23.9; wnl Est Kcals: ~5122-0030 kcals per day Est Pro: ~60-70 g per day Est Fluids: PER MD Meds Rev'd: metoprolol, lisinopril, nitroglycerin, inhaler, D5W NS at 75 mls per hour see eMar for complete list/details. Labs Rev'd: (09/29) glucose 132, BUN 25, Creat 2.2, Na+ 135, K+ 4.9, Ca+ 8.2, albumin 2.9, total pro 5.9, alk phos 124, alt 190, ast 110, cholesterol 125, HGB 11.3, HCT 35.3, MCV 90, MCH 29 Skin: Waylon Score 19; waffle overlay in place no pressure injuries noted Accuchecks: 78-185 (range) A: Pt po poor today per graphics. Likely 2/2 not alert enough to eat at this time per report. Rev'd meds and labs. Will disuss in Interdiciplinary rounds today. Rec consider nutrition support based on pt wishes if pt unable to consume meals 2/[address] illness[address] to continue to monitor nutrition indices and follow up prn/protocol. P: 1. Monitor PO intake and consider nutrition support if pt unable to consume foods >50% of meals >5 days. [facility] wts.
[2016-09-29 10:36] VITALS: BP 129/95
[2016-09-29 15:34] VITALS: BP 153/113
--- NOTE | 2016-09-29 18:30 | NUR ---
SHIFT SUMMARY: PT IS EITHER AWAKE, CONFUSED AND YELLING OUT, SWEARING AND CUSSIING, AND TRYING TO PULL OUT TUBES OR SOLMNOLENT IT IS DIFFICULT TO FIND A MEDIUM POINT WITH HER. WHEN AWAKE SHE STATES SHE IS HURTING ALL OVER BUT NO SPECIFICS. MORPHINE GIVEN WHICH DOES HELP CALM HER. SHE INITALLY REFUSED ALL OF HER PO MEDS INCLUDING HER METHADONE, BUT THEN AFTER ELISABET ERICKSONSUSANA CAME AND SHE WAS ABLE TO TALK WITH HIM AND HE ASKED HER TO TAKE HER MEDS SHE DID, BUT LATER SHE AGAIN REFUSED. SHE HAS BEEN REPOSITIONED SEVERAL TIMES AND IS ALSO ABLE TO REPOSITION HERSELF AT TIMES. SHE HAS BEEN IN CONTINENT OF URINE, NO BM TODAY. SHE HAS HAD THE ETCO2 MONITOR ON MOST OF THE DAY , WHEN SHE WILL KEEP IT ON AND SHOWS NO SIGNS OF RETENTION. SH HAS BEEN ON ROOM AIR MOST OF THE DAY WITH SATS MID 90S TO 100%, BUT HER SATS HAVE DROPPED ON TO THE 90-93% RANGE SO 02 PLACED AT 2L UNTIL SHE WAKES UP A LITTLE MORE.
[2016-09-29 18:43] VITALS: BP 96/73
[2016-09-29 21:45] VITALS: BP 123/79
[2016-09-30 01:51] VITALS: BP 107/71
--- NOTE | 2016-09-30 06:33 | Progress Note ---
Subjective General Note Date: 09/30/16 Admission Date: 09/26/2016 Hospital Day: 6 PCP: none Status: In patient Acute Care Advanced Directive: Full Code Room: 302 Admission history with progress Subjective 61-year-old female who presented to the CV, ED with 3 day history of chest pain and local upper abdominal quadrant/right lower costal pain). Patient was found to have amphetamines on tox screen. Initial imaging of the gallbladder showed thickening of the gallbladder wall.. CT chest showed a cardiomegaly with third spacing and associated pleuritic effusions/trace upper abdominal ascites. In addition an echocardiogram was performed with a reduction in the left ventricular function and an ejection fraction of 20%. This also revealed a borderline right ventricular chamber size with severely increased right ventricular systolic pressures of 76 mmHg. Patient was diagnosed with a cardiomyopathy with pulmonary hypertension. Etiology uncertain. Other than possibility of drug-induced cardiomyopathy. She was admitted with acute cholecystitis, possibly acalculous cholecystitis. HIDA scan was ordered for further review. Day 2, patient was minimally interactive and engaged. The patient was responsive to voice Minimal responsiveness. HIDA scan completed showing no evidence of acholic cholecystitis. Fluid and edematous changes likely a result of the heart failure. Patient with high levels of agitation and pain On day 3. Patient given increased levels of Ativan along with Toradol. Cardiac function; attempt to optimize with the starting of Lasix, beta lorena and KESHA inhibitor. Cardiology consult to review the cardiomyopathy and recommended further cardiac optimization. No formal consultation was performed. Overnight patient was agitated and hypersomnolent. Recommendations for patient to be seen as an outpatient. Patient's medications were optimized. Patient was started on carvedilol, and spironolactone/lasix Implemented morphine for apain control.. Patient on day 6 of her hospitalization at higher degree of wakefulness. Improvement in her kidney and liver function. Subjective Patient is somnolent. Patient is arousable but difficult to maintain wakefulness during interview. She has no complaints today. Physical Exam Vital Signs / I&Os Vital Signs Date Time Temp Pulse Resp B/P Pulse O2 O2 Flow FiO2 Ox Delivery Rate 09/30 0151 97.2 68 18 107/71 97 Room Air 2.0 09/296 97.5 09/29 2145 82 16 123/79 96 Room Air 2.0 09/29 2046 Room Air 2.0 09/29 1926 2.0 09/29 1845 97.9 09/29 1843 73 20 96/73 97 Room Air 09/29 1811 89 09/29 1534 97.5 89 20 153/113 96 Room Air 09/29 1216 83 09/29 1036 97.9 79 100 129/95 16 2.0 CAPINAUGRIPHY 09/29 0830 Room Air 09/29 0800 2.0 I&O 09/29 0800 09/29 1600 09/30 0000 Intake Total 1313 0 1170 Output Total 0 620 Balance 1313 0 550 General Appearance Mild distress, hypersomnolent Lungs Clear to auscultation Neck No JVD, No masses Cardiovascular Normal S1 and S2 Abdomen Soft LAB Results Laboratory Tests 09/30 09/30 0530 0530 Chemistry Plasma Sodium (136 - 145 mmol/L) 136 Plasma Potassium (3.5 - 5.1 mmol/L) 5.1 Plasma Chloride (98 - 107 mmol/L) 104 CO2 (Enzymatic) (21 - 32 mmol/L) 22 BUN (7 - 18 mg/dL) 28 Creatinine (0.6 - 1.3 mg/dL) 2.2 Est GFR ( Amer) (mL/min) 29.43 Est GFR (Non-Af Amer) (mL/min) 24.28 Glucose (70 - 110 mg/dL) 120 Plasma Calcium (8.5 - 10.1 mg/dL) 7.8 Plasma Magnesium (1.8 - 2.4 mg/dL) 2.0 Total Bilirubin (0.0 - 1.0 mg/dL) 0.4 AST (15 - 37 U/L) 101 ALT (12 - 78 U/L) 183 Alkaline Phosphatase (46 - 116 U/L) 94 B-Natriuretic Peptide (5 - 100 pg/ml) 1420 Total Protein (6.4 - 8.2 g/dL) 4.9 Albumin (3.3 - 5.0 g/dL) 2.6 Hematology WBC (4.5 - 11.5 K/uL) 10.6 RBC (4.00 - 5.20 M/uL) 3.37 Hgb (12.0 - 16.0 gm/dL) 9.7 Hct (36.0 - 46.0 %) 30.2 MCV (80 - 100 fL) 90 MCH (26 - 34 pg) 29 RDW (11.6 - 14.8 %) 15.9 Plt Count, EDTA (150 - 400 K/uL) 322 PUBS MCHC (31 - 37 g/dL) 32 Assessment and Plan Problem List 1. Cardiomyopathy Plan Continue With the beta lorena Light diuresis. Attempt to get patient up and out of bed 2. CHF (congestive heart failure) Status Chronic Onset Date Unknown Plan As per the above. Optimize cardiac function. Reduce rate and improve the stroke volume. Elevated BNP. Continue diuresis. 3. COPD (chronic obstructive pulmonary disease) Status Chronic Onset Date Unknown Plan Monitor. Using inhalers as needed 4. UTI (urinary tract infection) Status Acute Onset Date Unknown Plan Escherichia coli that is pansensitive. Continue with the ceftriaxone for the next 5 days. 5. Hypertension Status Acute Onset Date Unknown Plan Stable blood pressure 6. Anemia Status Acute Onset Date Unknown Plan Maintain the Adequate nutritional status 7. Pulmonary hypertension Status Chronic Onset Date Unknown Plan Monitor; light diuresis Optimize cardiac function. 8. Illicit drug use Status Chronic Onset Date Unknown Plan Implement outpatient therapy. Current status: guarded Anticipated discharge date: 2-3 days Anticipated discharge placement: home Patient care time: Time spent in chart review, patient interview, physical exam, CPOE, and care documentation: 35 minutes Visit to patient today: 2 Complexity of care: high to moderate. E&M Codes Rounding: Inpt-High/62799
--- NOTE | 2016-09-30 06:40 | NUR ---
PT RESTING IN BED. PT C/O BACK PAIN. RN GAVE PT 2 MG MORPHINE IV FOR PAIN. PT REPOSITIONED IN BED, WARM BLANKET GIVEN. PT BECOMING AGITATED AND STATING, " YOU NEED TO TAKE THESE ( RESTRAINTS) OFF, WHY ARE YOU DOING THIS. RN REMOVED BILT ANKLE RESTRAINTS @0600. RN INFORMED PATIENT OF THE PLAN TO REMOVE RESTRAINTS. PT TOLERATING HAVING BLE RESTRAINTS OFF.BED ALARM IS ON. BED IN LOWEST POSITION, WCTM.
[2016-09-30 08:29] VITALS: BP 105/65
[2016-09-30 12:11] VITALS: BP 128/88
--- NOTE | 2016-09-30 12:12 | NUR ---
NUTRITION FOLLOW UP NOTE: Pt eating this am, ~50% which is quite an improvement from yesterday. Per nsg pt appears to be more appropriate today, not yelling/screaming at staff. Sat up and ate breakfast with some tray and food set up. [facility] as appears appropriate and tolerated at this time. Rec offer Ensure if po less than 50%. RD to follow up prn/protocol.
[2016-09-30 14:26] VITALS: BP 101/67
--- NOTE | 2016-09-30 15:16 | NUR ---
Discussed medication list with patient. She was tearful and fearful. Patient's father in July and she says she has the same problem with her heart that he had. She adamantly does not want to take acetaminophen or methadone which I did relay to nursing. She was also concerned that 'no one knows I'm here' and 'I can't find my cell phone'. I was able to find her cell phone and she did then attempt to place a call. She is also concerned about charging her phone which I also discussed with nursing. Patient did not show understanding of her medications but did show interest in finding out more. Her ability to track with the conversation was limited.
[2016-09-30 18:25] VITALS: BP 90/56
[2016-09-30 23:00] VITALS: BP 118/78
[2016-10-01 02:37] VITALS: BP 103/70
--- NOTE | 2016-10-01 06:28 | NUR ---
A/Ox4 appropriate, cooperative, drowsy but arousible to call esily. vss, afebrile. NSR 80's. O2 sat>92% in RA. Lungs rhonchi, neb tx RTC. nonproductive cogh. Denies sob. Rt shoulder pain and chest pressurelike pain subided with Methadone 10mg(scheduled). IF continued for hydration. BSC with x1 assist. Fall risk but pt uses call light, request for help. coherent. Bed exit alarm continued over night for fall risk prevention. Rested and slept well.
[2016-10-01 07:10] VITALS: BP 112/80
[2016-10-01 12:50] VITALS: BP 114/96
[2016-10-01 14:00] VITALS: BP 113/84
--- NOTE | 2016-10-01 15:34 | Progress Note ---
Subjective General Patient seen and examined. Patient has no acute events overnight. Patient is tolerating her new CHF goal-directed care medication plan. Patient has appropriate I's and O's. Patient has appropriate blood pressure and heart rate. We'll look to discharge the patient tomorrow Constitutional Weakness. Denies: Fever, Chills, Sweats, Malaise, Other. Eyes Denies: Pain, Vision Change, Conjunctival Inflammation, Eyelid Inflammation, Redness, Other. Respiratory Denies: Cough, Dry, SOB w/exertion, Wheezing, Hemoptysis, Pleuritic Pain, Sputum , Other. Cardiovascular Denies: Chest Pain, Palpitations, Orthopnea, PND, Edema, Light-headedness, Other. Gastrointestinal Nausea. Denies: Vomiting, Abdominal Pain, Diarrhea, Constipation, Melena, Hematochezia, Other. Genitourinary Denies: Dysuria, Frequency, Incontinence, Hematuria, Retention, Other. Musculoskeletal Denies: Neck Pain, Shoulder Pain, Arm Pain, Back Pain, Hand Pain, Leg Pain, Foot Pain, Other. Skin Denies: Rash, Lesions, Jaundice, Bruising, Other. Neurological Denies: Weakness, Numbness, Incoordination, Change in speech, Confusion, Seizures, Other. Physical Exam Vital Signs / I&Os Vital Signs Date Time Temp Pulse Resp B/P Pulse O2 O2 Flow FiO2 Ox Delivery Rate 10/01 1400 98.4 81 17 113/84 98 Room Air 10/01 1250 98.4 83 17 114/96 98 Room Air 10/01 1039 80 / 0710 98.2 80 17 112/80 91 Room Air 10/01 0237 98.2 80 16 103/70 95 Room Air 10/01 0110 Room Air 09/30 2300 98.1 80 20 118/78 95 Room Air 09/30 1946 Room Air 09/30 1828 83 09/30 1825 98.1 81 20 90/56 93 Room Air I&O 09/30 0800 09/30 1600 10/01 0000 Intake Total 749 1611 840 Output Total 1250 300 Balance 749 361 540 General Appearance Alert, Oriented X3, No acute distress HEENT Atraumatic, PERRLA, Moist mucous membranes Lungs Clear to auscultation Neck No JVD, No masses Cardiovascular Normal S1 and S2, No murmurs, gallops, rubs Abdomen Soft Extremities No edema, Normal pulses, No tenderness Skin No Breakdown Psych/Mental Status Mood normal LAB Results Laboratory Tests 10/01 512 Chemistry Plasma Sodium (136 - 145 mmol/L) 130 Plasma Potassium (3.5 - 5.1 mmol/L) 4.9 Plasma Chloride (98 - 107 mmol/L) 100 CO2 (Enzymatic) (21 - 32 mmol/L) 22 BUN (7 - 18 mg/dL) 29 Creatinine (0.6 - 1.3 mg/dL) 1.8 Est GFR ( Amer) (mL/min) 37.10 Est GFR (Non-Af Amer) (mL/min) 30.61 Glucose (70 - 110 mg/dL) 104 Plasma Calcium (8.5 - 10.1 mg/dL) 8.0 Plasma Magnesium (1.8 - 2.4 mg/dL) 1.9 Total Bilirubin (0.0 - 1.0 mg/dL) 0.2 AST (15 - 37 U/L) 70 ALT (12 - 78 U/L) 164 Alkaline Phosphatase (46 - 116 U/L) 99 Total Protein (6.4 - 8.2 g/dL) 5.7 Albumin (3.3 - 5.0 g/dL) 2.6 Hematology WBC (4.5 - 11.5 K/uL) 10.5 RBC (4.00 - 5.20 M/uL) 3.53 Hgb (12.0 - 16.0 gm/dL) 10.2 Hct (36.0 - 46.0 %) 31.6 MCV (80 - 100 fL) 89 MCH (26 - 34 pg) 29 RDW (11.6 - 14.8 %) 16.0 Neut % (Auto) (50 - 75 %) 61.5 Lymph % (Auto) (25 - 40 %) 21.3 [place] % (Auto) (3 - 14 %) 12.2 Eos % (Auto) (0 - 4 %) 4.2 Baso % (Auto) (0 - 2 %) 0.8 Plt Count, EDTA (150 - 400 K/uL) 347 PUBS MCHC (31 - 37 g/dL) 32 Assessment and Plan Problem List 1. Cardiomyopathy Plan Patient has evidence of cardiomyopathy is likely secondary to amphetamine abuse Patient's echocardiogram reveals an ejection fraction of 20% Patient is currently in normal sinus rhythm with appropriate blood pressure is on goal-directed cardiomyopathy medication Patient has appropriate ins and outs as well as a relatively benign physical exam We'll continue with the goal-directed therapy at current recommendations Outpatient granite installer is warranted 2. CHF (congestive heart failure) Status Chronic Onset Date Unknown Plan Patient is currently in congestive heart failure stage III Most likely due to amphetamine abuse Patient urged to stop smoking and stop using amphetamines Patient urged to continue with medication plan and follow-up with granite installer 3. COPD (chronic obstructive pulmonary disease) Status Chronic Onset Date Unknown Plan Stable no evidence of accessory breathing noises including wheezes, rhonchi, cough or prolonged expiratory phase 4. UTI (urinary tract infection) Status Acute Onset Date Unknown Plan Seen on admission We'll continue with ceftriaxone for the time being We'll switch to by mouth therapy upon discharge for the next however many days 5. Anemia Status Acute Onset Date Unknown Plan Evidence of anemia Secondary to iron deficiency We'll continue with iron supplementation adequate nutritional status 6. Pulmonary hypertension Status Chronic Onset Date Unknown Plan Increased pulmonary pressures secondary to poor heart function Patient will need to be reevaluated given the fact she was in acute CHF Patient should have an echocardiogram scheduled within 6 months upon discharge 7. Illicit drug use Status Chronic Onset Date Unknown Plan Patient urged to stop smoking amphetamines in order to preserve heart function The patient is adamant that she does not use drugs
[2016-10-01 18:00] VITALS: BP 127/90
--- NOTE | 2016-10-01 22:04 | NUR ---
Patient alert and oriented. Denies pain at this time. Requested "anti-anxiety medicine". Ativan 1 mg given. Patient cooperative with all aspects of care. Will continue to monitor.
[2016-10-01 22:57] VITALS: BP 113/76
[2016-10-02 02:19] VITALS: BP 123/88
--- NOTE | 2016-10-02 04:44 | NUR ---
A/Ox4 drowsy but appropriate cooperative easily arousible. Bed exit alarm in use for fall risk/safty. pt is with program and anticipating discharge home today. asking questions and request help as needed. vss. IV SL'd. Pain managed well with scheduled Methadone po. gets out of the bed w/ supervision only. No sob in RA. nonproductive occasional cough present. Neb tx RTC. NSR @70's-80's. Condition stable, rested well, uneventful noc
[2016-10-02 08:23] VITALS: BP 139/95
--- NOTE | 2016-10-02 08:43 | NUR ---
CALLED DR ALVARADO TO ADVISE IV ACCESS WENT BAD. DR ALVARADO STATED IT OK TO LEAVE OUT. WILL CHANGE ANTIBIOTIC TO PO
[2016-10-02 10:38] VITALS: BP 138/92
[2016-10-02] MEDS ORDERED: CARVEDILOL3.125 MG PO (12:04)
[2016-10-02] MEDS ORDERED: SPIRONOLACTONE25 MG PO (12:04)
[2016-10-02] MEDS ORDERED: LISINOPRIL2.5 MG PO (12:04)
[2016-10-02] MEDS ORDERED: ALBUTEROL HFA60 DOSE IN (12:05)
--- NOTE | 2016-10-02 12:07 | Provider's Discharge Care Plan ---
Problem, Goal, Plan Problem List 1. CHF (congestive heart failure) Instructions: - ingest less than 2 liters of fluid daily - take medications as prescribed - follow up with your primary care provider 2. COPD (chronic obstructive pulmonary disease) Instructions: Stop smoking, - take inhaler as prescribed 3. Cardiomyopathy Instructions: - stop all drug use - stop smoking
--- NOTE | 2016-10-02 13:14 | NUR ---
Gave discharge information to pt and answered questions to pt's satisfaction. Pt advised that she needs to call tomorrow to make a follow up appointment. pt is waiting for her sister's to come back from lunch to take her home. advised pt that we need to wheelchair her downstairs when she is ready to go
--- NOTE | 2016-10-02 13:28 | NUR ---
4 prescriptions given to pt and put into discharge package.
--- NOTE | 2016-10-02 14:27 | NUR ---
PT LEFT WITH COUNTRY DIRECTOR TO PT'S SISTER CAR VIA WHEELCHAIR
--- NOTE | 2016-10-02 16:04 | Discharge Summary ---
Discharge Summary Report Admit Date 09/26/16 Discharge Date 10/02/16 Admission Diagnosis Shortness of breath Discharge Diagnosis Cardiomyopathy secondary to illicit substance use Brief History Please refer to admission H&P Hospital Course Pt is a 61-year-old female who presented to the , ED with 3 day history of chest pain and local upper abdominal quadrant/right lower costal pain). Patient was found to have amphetamines on tox screen. Initial imaging of the gallbladder showed thickening of the gallbladder wall.. CT chest showed a cardiomegaly with third spacing and associated pleuritic effusions/trace upper abdominal ascites. In addition an echocardiogram was performed with a reduction in the left ventricular function and an ejection fraction of 20%. This also revealed a borderline right ventricular chamber size with severely increased right ventricular systolic pressures of 76 mmHg. Patient was diagnosed with a cardiomyopathy with pulmonary hypertension. Etiology uncertain. Other than possibility of drug-induced cardiomyopathy. She was admitted with acute cholecystitis, possibly acalculous cholecystitis. HIDA scan was ordered for further review. Day 2, patient was minimally interactive and engaged. The patient was responsive to voice Minimal responsiveness. HIDA scan completed showing no evidence of acholic cholecystitis. Fluid and edematous changes likely a result of the heart failure. Patient with high levels of agitation and pain On day 3. Patient given increased levels of Ativan along with Toradol. Cardiac function; attempt to optimize with the starting of Lasix, beta lorena and KESHA inhibitor. Cardiology consult to review the cardiomyopathy and recommended further cardiac optimization. No formal consultation was performed. Overnight patient was agitated and hypersomnolent. Recommendations for patient to be seen as an outpatient. Patient's medications were optimized. Patient was started on carvedilol, and spironolactone/lasix. Patient was able to tolerate the medication without any difficulty. There was a question about ambulation in which patient was finding it difficult to ambulate. When told that the patient would have to wait for physical therapy and she could not be discharged patient was suddenly able to regain her ability to walk without assistance. At this time is decided the patient could be discharged home. Discussion was held with the family members urging the family to keep a watchful eye of the patient. And not let her go down the same tablets before otherwise she would have worsening heart function over time General Appearance Alert, Oriented X3, No acute distress HEENT PERRLA, EOMI, Mucous membran moist/pink Lungs Normal air movement Cardiovascular Normal S1, Normal S2, No murmurs Abdomen Soft, No tenderness Skin No Breakdown Neurological Normal speech, Strength at 5/5 X4 ext, Normal tone, Sensation intact Lab/Imaging Laboratory Tests 10/02 10/02 0512 0512 Chemistry Plasma Sodium (136 - 145 mmol/L) 133 Plasma Potassium (3.5 - 5.1 mmol/L) 5.4 Plasma Chloride (98 - 107 mmol/L) 100 CO2 (Enzymatic) (21 - 32 mmol/L) 25 BUN (7 - 18 mg/dL) 29 Creatinine (0.6 - 1.3 mg/dL) 1.6 Est GFR ( Amer) (mL/min) 42.50 Est GFR (Non-Af Amer) (mL/min) 35.06 Glucose (70 - 110 mg/dL) 91 Plasma Calcium (8.5 - 10.1 mg/dL) 8.4 Total Bilirubin (0.0 - 1.0 mg/dL) 0.3 AST (15 - 37 U/L) 64 ALT (12 - 78 U/L) 156 Alkaline Phosphatase (46 - 116 U/L) 113 B-Natriuretic Peptide (5 - 100 pg/ml) 1240 Total Protein (6.4 - 8.2 g/dL) 6.1 Albumin (3.3 - 5.0 g/dL) 2.9 Discharge Instructions/Meds - take meds as prescribed - obtain and follow up with your primary care provider
== END 2016-10-02 14:25 | disposition home or self-care (01) | DRG 194 ==
LOC: ED SRH 09:09 → TRANS SRH 17:11 → CC SRH 20:33
PROVIDERS: ADMIT Emergency Medicine
DX: I50.31 Acute diastolic (congestive) heart failure (principal); I42.7 Cardiomyopathy due to drug and external agent; T43.621S Poisoning by amphetamines, accidental (unintentional), sequela; I27.2 Other secondary pulmonary hypertension; K81.0 Acute cholecystitis; R18.8 Other ascites; I10 Essential (primary) hypertension; N39.0 Urinary tract infection, site not specified; F15.180 Other stimulant abuse with stimulant-induced anxiety disorder; I07.1 Rheumatic tricuspid insufficiency; J44.9 Chronic obstructive pulmonary disease, unspecified; D64.9 Anemia, unspecified; F17.210 Nicotine dependence, cigarettes, uncomplicated; Z78.1 Physical restraint status
CPT/HCPCS: 85241; 90004; 90025; 90047; 90065; 90074; 90098; 90100; 90148; 90469; 90616; 91286; 91295; 91320; 91504; 91505; 91556; 91585; 92031; 92132; 92530; 92610; 92668; 92670; 92690; 92710; 92720; 92755; 92760; 92761; 92762; 92763; 92764; 92765; 92766; 92767; 93004; 93140; 95059; 95061; 95150; 99787